=== PATIENT | female | born 1935 | race Caucasian/White ===

== ENCOUNTER → 2017-10-19 | Outpatient (CLI) | payer OTHER, MEDICAID ==
[~2017-10-19] MED LIST: AMLO10TA2 PO; APIX5TAB PO; CEPH-376 PO; CLON0.5T11 PO; DIGO125T PO; DILT120C9 PO; DILT180C53 PO; DILT240C55 PO; ESCI10TA PO; ESCI5TAB PO; FURO-93 PO; HYDR-3237 PO; IBUP-1222 PO; IPRA3AMP30 NPPB; LOSA1TAB25 PO; LOSA25TA2 PO; LOSA50TA2 PO; METO200T47 PO; METO25TA35 PO; POTA10TA5 PO; SULF15DR5 EACHEYE
== END | disposition home or self-care (01) ==
LOC: CFH 09:02
PROVIDERS: ATTEND Internal Medicine Critical Care Medicine
DX: J84.9 Interstitial pulmonary disease, unspecified (principal); R06.09 Other forms of dyspnea
CPT/HCPCS: 71250

== ENCOUNTER → 2018-01-03 | Outpatient (CLI) | payer OTHER, MEDICAID ==
[~2018-01-03] MED LIST changes: -AMLO10TA2 PO; +AMLO10TA6 PO
== END | disposition home or self-care (01) ==
LOC: CVU 13:48
PROVIDERS: ATTEND Internal Medicine Cardiovascular Disease
DX: I08.0 Rheumatic disorders of both mitral and aortic valves (principal); I10 Essential (primary) hypertension; Z87.891 Personal history of nicotine dependence
CPT/HCPCS: 93306

== ENCOUNTER 2018-09-28 15:14 | Inpatient (IN) | payer MEDICAID, MEDICARE, OTHER ==
[~2018-09-28] VITALS: Ht 165.1 cm; Wt 122.9 kg
[2018-10-03 07:34] VITALS: BP 119/79
== END 2018-10-03 10:50 | disposition home or self-care (01) | DRG 180 ==
LOC: ED 19:18 → EDIP 19:22 → 3NW 20:19 → 4WST 09-29 12:48 → DCLOUNGE 10-03 10:39
PROVIDERS: ADMIT Internal Medicine; ATTEND Internal Medicine
PROC: 0BBL3ZX Excision of Left Lung, Percutaneous Approach, Diagnostic (ICD-10-PCS; principal; 2018-10-02)
DX: C34.32 Malignant neoplasm of lower lobe, left bronchus or lung (principal); J18.9 Pneumonia, unspecified organism; J96.20 Acute and chronic respiratory failure, unspecified whether with hypoxia or hypercapnia; E43 Unspecified severe protein-calorie malnutrition; N17.0 Acute kidney failure with tubular necrosis; D68.69 Other thrombophilia; Z68.42 Body mass index [BMI] 45.0-49.9, adult; I50.32 Chronic diastolic (congestive) heart failure; J44.0 Chronic obstructive pulmonary disease with (acute) lower respiratory infection; E66.01 Morbid (severe) obesity due to excess calories; R91.8 Other nonspecific abnormal finding of lung field; F32.9 Major depressive disorder, single episode, unspecified; F41.9 Anxiety disorder, unspecified; I11.0 Hypertensive heart disease with heart failure; I48.2 Chronic atrial fibrillation; Z82.49 Family history of ischemic heart disease and other diseases of the circulatory system; Z79.01 Long term (current) use of anticoagulants; Z87.891 Personal history of nicotine dependence; Z90.710 Acquired absence of both cervix and uterus; Z99.81 Dependence on supplemental oxygen
CPT/HCPCS: 32405; 36415; 71045; 71260; 77012; 80053; 80061; 82378; 83036; 83605; 83735; 83880; 84145; 84439; 84443; 84484; 85025; 85610; 87040; 87070; 87205; 88305; 88333; 88341; 88342; 93005; 93306; 94640; 99156; 99157; 99291; G0378; J0696; J1335; J1644; J2250; J3010; J7060; J7613; J7620; Q9967; J2310

== ENCOUNTER → 2018-12-26 | Outpatient (CLI) | payer MEDICARE, MEDICAID ==
[~2018-12-26] MED LIST changes: -AMLO10TA6 PO; +AMLO10TA8 PO; +DILT120C48 PO; -DILT120C9 PO; +LEVA0.63 INH; +LEVO500T47 PO; +LIDOCAINE 1%, 10ML ONE; +SPIR25TA5 PO; +WARF-36 PO; +[UNRECOGNIZED DRUG - CODE] PO
== END | disposition home or self-care (01) ==
LOC: RAD 13:40
PROVIDERS: ATTEND Radiology Radiation Oncology
DX: J90 Pleural effusion, not elsewhere classified (principal); C34.32 Malignant neoplasm of lower lobe, left bronchus or lung
CPT/HCPCS: 32555

== ENCOUNTER → 2019-01-25 | Outpatient (CLI) | payer MEDICARE, MEDICAID ==
[~2019-01-25] MED LIST changes: -LIDOCAINE 1%, 10ML ONE
== END | disposition home or self-care (01) ==
LOC: EDSTATUS 01-22 19:00 → ROC 07:17
PROVIDERS: ATTEND Radiology Radiation Oncology
DX: C34.32 Malignant neoplasm of lower lobe, left bronchus or lung (principal)
CPT/HCPCS: 99213; G0463

== ENCOUNTER 2019-02-06 06:27 | Emergency (ER) | payer MEDICARE, MEDICAID ==
[~2019-02-06] VITALS: Ht 165.1 cm; Wt 108.1 kg
[2019-02-06] MEDS ORDERED: SODIUM CHLORIDE 0.9% 1,000ML IVBOLUS ONE (07:00)
[2019-02-06] MEDS ORDERED: SODIUM CHLORIDE FLUSH 10ML SYR IVF ONE (07:00)
--- NOTE | 2019-02-06 07:10 | NUR ---
REPORT RECEIVED FROM OSORIO RN. PT TAKEN TO IMAGING AT THIS TIME, DENIES NEEDS, NAD NOTED
[2019-02-06 07:24] LABS: ALBUMIN 2.9 g/dL (3.4-5.0); ANION GAP 7 mmol/L (5-15); CALCIUM 8.9 mg/dL (8.5-10.1); CHLORIDE 100 mmol/L (98-107)
[2019-02-06 07:25] LABS: BASOPHILS # (AUTO) 0.01 x10^3/uL (0-0.1); BASOPHILS % (AUTO) 0 % (0-1); EOSINOPHILS # (AUTO) 0.02 x10^3/uL (0-0.4); EOSINOPHILS % (AUTO) 0 % (1-7); LYMPHOCYTES # (AUTO) 0.96 x10^3/uL (1-3.4); LYMPHOCYTES % (AUTO) 16 % (22-44); MD NO; MEAN CORPUSCULAR HEMOGLOBIN 32.8 pg (27.0-34.8); MEAN CORPUSCULAR HGB CONC 33.3 g/dL (32.4-35.8); MEAN CORPUSCULAR VOLUME 98.3 fL (80-100); MEAN PLATELET VOLUME 7.2 fL (7.4-10.4); MONOCYTES # (AUTO) 0.49 x10^3/uL (0.2-0.8); MONOCYTES % (AUTO) 8 % (2-9); NEUTROPHILS # (AUTO) 4.63 x10^3/uL (1.8-6.8); NEUTROPHILS % (AUTO) 76 % (42-75); PLATELET COUNT 248 x10^3/uL (130-400); RED BLOOD COUNT 3.91 x10^6/uL (3.82-5.3); RED CELL DISTRIBUTION WIDTH 17.2 % (9.6-15.2)
[2019-02-06 07:26] LABS: ALANINE AMINOTRANSFERASE 47 U/L (12-78); ALKALINE PHOSPHATASE 181 U/L (45-117); BILIRUBIN,TOTAL 0.8 mg/dL (0.2-1.0); CREATININE 1.41 mg/dL (0.55-1.02); TOTAL PROTEIN 8.3 g/dL (6.4-8.2)
--- NOTE | 2019-02-06 08:07 | NUR ---
PT ASSISTED TO BR, WHEELCHAIR NEEDED FOR ASSIT, PT REMAINS ON SUPP O2 DURING TRANSFER, UA/ STOOL SAMPLE COLLECTED AND SENT TO LAB, PT BACK TO [facility] AT THIS TIME, VSS
[2019-02-06] MEDS ORDERED: LOPERAMIDE 2 MG CAPSULE ONE (08:26)
[2019-02-06] MEDS ORDERED: LOPERAMIDE 2 MG CAPSULE PO ONE (08:30)
[2019-02-06 08:35] LABS: MICROSCOPIC INDICATED
[2019-02-06 09:10] LABS: CULTURE INDICATED? YES
[2019-02-06 09:51] LABS: CLOSTRIDIUM DIFFICILE ANTIGEN NEGATIVE; CLOSTRIDIUM DIFFICILE TOXIN NEGATIVE (Negative)
--- NOTE | 2019-02-06 09:55 | NUR ---
REPORT TO MURALI PADILLA
--- NOTE | 2019-02-06 09:57 | NUR ---
PT RESTING IN ROOM WITH EYES CLOSED. EASILY ARROUSABLE TO VOICE. VSS. NO NEEDS EXPRESSED. CALL LIGHT WITHIN REACH. ALL RESULTS BACK AT THIS TIME. CHART UP FOR RECHECK.
[2019-02-06 10:48] VITALS: BP 109/59
== END 2019-02-06 11:33 | disposition home or self-care (01) ==
LOC: ED 09:05
DX: R19.7 Diarrhea, unspecified (principal); I11.0 Hypertensive heart disease with heart failure; I50.9 Heart failure, unspecified; J44.9 Chronic obstructive pulmonary disease, unspecified; Z87.891 Personal history of nicotine dependence
CPT/HCPCS: 36415; 74022; 80053; 81001; 85025; 87086; 87324; 89055; 96360; 99284; J7030

== ENCOUNTER 2019-02-12 18:57 | Emergency (ER) | payer MEDICARE, MEDICAID ==
[~2019-02-12] VITALS: Ht 165.1 cm; Wt 109.3 kg
--- NOTE | 2019-02-12 19:28 | NUR ---
PT HERE SENT FROM URGENT CARE FOR POSSIBLE WOUND INFECTION ON RIGHT POSTERIOR CALF. PT STATES STARTED A SCRATCH 3-4 WEEKS AGO AND HAS GOTTEN PROGESSIVELY WORSE. PT AAO X 4, NAD, ON BASELINE O2 AT HOME, DRESSED IN GOWN AND ON MONITOR. CALL LIGHT WITHIN REACH AND FAMILY AT BEDSIDE.
--- NOTE | 2019-02-12 20:25 | NUR ---
RADIOLOGY AT BEDSIDE AND COMPLETED. US AT BEDSIDE.
[2019-02-12] MEDS ORDERED: WARF2TAB PO (20:38)
[2019-02-12] MEDS ORDERED: WARF1TAB74 PO (20:38)
--- NOTE | 2019-02-12 21:02 | NUR ---
REPORT GIVEN TO RANDY LÓPEZ. CARE TRANSFERRED.
[2019-02-12 22:24] VITALS: BP 138/64
== END 2019-02-12 22:40 | disposition home or self-care (01) ==
LOC: ED 20:31
DX: L03.115 Cellulitis of right lower limb (principal); I50.9 Heart failure, unspecified; I11.0 Hypertensive heart disease with heart failure; I48.91 Unspecified atrial fibrillation; Z87.891 Personal history of nicotine dependence
CPT/HCPCS: 99284

== ENCOUNTER → 2019-02-22 | Outpatient (CLI) | payer MEDICARE, MEDICAID ==
[~2019-02-22] MED LIST changes: +OMNIPAQUE 350 MG/ML, 100ML BOTTLE ONE; +WARF1TAB74 PO; +WARF2TAB PO
== END | disposition home or self-care (01) ==
LOC: CFH 15:19
PROVIDERS: ATTEND Radiology Radiation Oncology
DX: C34.32 Malignant neoplasm of lower lobe, left bronchus or lung (principal); I70.0 Atherosclerosis of aorta; I51.7 Cardiomegaly; J90 Pleural effusion, not elsewhere classified; J43.2 Centrilobular emphysema; J81.1 Chronic pulmonary edema; M85.88 Other specified disorders of bone density and structure, other site; M47.892 Other spondylosis, cervical region; N28.1 Cyst of kidney, acquired; N28.89 Other specified disorders of kidney and ureter; K59.09 Other constipation
CPT/HCPCS: 71260; 74177; Q9967

== ENCOUNTER 2019-02-26 10:32 | Outpatient (CLI) | payer MEDICARE, MEDICAID ==
[~2019-02-26 10:32] MED LIST changes: +CLON-364 PO; -CLON0.5T11 PO; -DIGO125T PO; +DIGO125T85 PO; -OMNIPAQUE 350 MG/ML, 100ML BOTTLE ONE
[2019-05-06] MEDS ORDERED: ERGO2000 PO (01:36)
[2019-05-06] MEDS ORDERED: CYAN250013 PO (01:36)
[2019-05-09] MEDS ORDERED: CEFD300C37 PO ×2 (09:30)
== END 2019-02-26 23:59 | disposition home or self-care (01) ==
LOC: ROC 10:32
PROVIDERS: ATTEND Radiology Radiation Oncology
DX: C34.32 Malignant neoplasm of lower lobe, left bronchus or lung (principal)
CPT/HCPCS: 99213; G0463

== ENCOUNTER 2019-03-06 10:20 | Outpatient (CLI) | payer MEDICARE, MEDICAID | END 2019-03-06 23:59 | disposition home or self-care (01) | LOC: WOUND 10:20 | PROVIDERS: ATTEND Internal Medicine Infectious Disease | DX: L97.812 Non-pressure chronic ulcer of other part of right lower leg with fat layer exposed (principal); C34.12 Malignant neoplasm of upper lobe, left bronchus or lung; I11.0 Hypertensive heart disease with heart failure; I50.9 Heart failure, unspecified; I48.91 Unspecified atrial fibrillation; Z90.710 Acquired absence of both cervix and uterus; Z87.891 Personal history of nicotine dependence | CPT/HCPCS: 97602; G0463 ==

== ENCOUNTER → 2019-03-13 | Outpatient (CLI) | payer MEDICARE, MEDICAID ==
[~2019-03-13] MED LIST changes: -CLON-364 PO; +CLON0.5T11 PO; +DIGO125T PO; -DIGO125T85 PO
== END | disposition home or self-care (01) ==
LOC: WOUND 09:31
PROVIDERS: ATTEND Nurse Practitioner Family
DX: L97.812 Non-pressure chronic ulcer of other part of right lower leg with fat layer exposed (principal); C34.12 Malignant neoplasm of upper lobe, left bronchus or lung; I50.9 Heart failure, unspecified; I48.91 Unspecified atrial fibrillation; Z87.891 Personal history of nicotine dependence
CPT/HCPCS: 97597

== ENCOUNTER 2019-03-20 10:59 | Outpatient (CLI) | payer MEDICARE, MEDICAID ==
[~2019-03-20 10:59] MED LIST changes: +CLON-364 PO; -CLON0.5T11 PO; -DIGO125T PO; +DIGO125T85 PO
== END 2019-03-20 23:59 | disposition home or self-care (01) ==
LOC: WOUND 10:59
PROVIDERS: ATTEND Nurse Practitioner Family
DX: L97.812 Non-pressure chronic ulcer of other part of right lower leg with fat layer exposed (principal); C34.12 Malignant neoplasm of upper lobe, left bronchus or lung; I11.0 Hypertensive heart disease with heart failure; I50.9 Heart failure, unspecified; I48.91 Unspecified atrial fibrillation; J43.2 Centrilobular emphysema; Z87.891 Personal history of nicotine dependence; Z90.710 Acquired absence of both cervix and uterus
CPT/HCPCS: 11042; 97607

== ENCOUNTER 2019-03-23 12:45 | Outpatient (CLI) | payer MEDICARE, MEDICAID | END 2019-03-23 23:59 | disposition home or self-care (01) | LOC: WOUND 12:45 | PROVIDERS: ATTEND Family Medicine | DX: L97.811 Non-pressure chronic ulcer of other part of right lower leg limited to breakdown of skin (principal); I11.0 Hypertensive heart disease with heart failure; I50.9 Heart failure, unspecified; I70.0 Atherosclerosis of aorta; I48.91 Unspecified atrial fibrillation; M85.88 Other specified disorders of bone density and structure, other site; M47.892 Other spondylosis, cervical region; J81.1 Chronic pulmonary edema; J44.9 Chronic obstructive pulmonary disease, unspecified; C34.32 Malignant neoplasm of lower lobe, left bronchus or lung; C34.12 Malignant neoplasm of upper lobe, left bronchus or lung; Z90.710 Acquired absence of both cervix and uterus; Z88.0 Allergy status to penicillin; Z87.891 Personal history of nicotine dependence | CPT/HCPCS: G0463 ==

== ENCOUNTER 2019-03-27 10:18 | Outpatient (CLI) | payer MEDICARE, MEDICAID | END 2019-03-27 23:59 | disposition home or self-care (01) | LOC: WOUND 10:18 | PROVIDERS: ATTEND Nurse Practitioner Family | DX: L97.811 Non-pressure chronic ulcer of other part of right lower leg limited to breakdown of skin (principal); I11.0 Hypertensive heart disease with heart failure; I50.9 Heart failure, unspecified; I70.0 Atherosclerosis of aorta; I48.91 Unspecified atrial fibrillation; J81.1 Chronic pulmonary edema; J44.9 Chronic obstructive pulmonary disease, unspecified; M85.88 Other specified disorders of bone density and structure, other site; M47.892 Other spondylosis, cervical region; N28.1 Cyst of kidney, acquired; N28.89 Other specified disorders of kidney and ureter; C34.12 Malignant neoplasm of upper lobe, left bronchus or lung; C34.32 Malignant neoplasm of lower lobe, left bronchus or lung; Z87.891 Personal history of nicotine dependence; Z88.0 Allergy status to penicillin; Z90.710 Acquired absence of both cervix and uterus | CPT/HCPCS: 97597 ==

== ENCOUNTER 2019-04-03 10:34 | Outpatient (CLI) | payer MEDICARE, MEDICAID | END 2019-04-03 23:59 | disposition home or self-care (01) | LOC: WOUND 10:34 | PROVIDERS: ATTEND Nurse Practitioner Family | DX: L97.811 Non-pressure chronic ulcer of other part of right lower leg limited to breakdown of skin (principal); L84 Corns and callosities; I11.0 Hypertensive heart disease with heart failure; I50.9 Heart failure, unspecified; I70.0 Atherosclerosis of aorta; I48.91 Unspecified atrial fibrillation; N28.1 Cyst of kidney, acquired; M47.892 Other spondylosis, cervical region; M85.88 Other specified disorders of bone density and structure, other site; J44.9 Chronic obstructive pulmonary disease, unspecified; J81.1 Chronic pulmonary edema; C34.12 Malignant neoplasm of upper lobe, left bronchus or lung; F41.9 Anxiety disorder, unspecified; Z88.0 Allergy status to penicillin; Z87.891 Personal history of nicotine dependence; Z90.710 Acquired absence of both cervix and uterus; Z90.49 Acquired absence of other specified parts of digestive tract | CPT/HCPCS: 97597 ==

== ENCOUNTER → 2019-04-10 | Outpatient (CLI) | payer MEDICARE, MEDICAID | END | disposition home or self-care (01) | LOC: WOUND 09:55 | PROVIDERS: ATTEND Internal Medicine Infectious Disease | DX: L97.812 Non-pressure chronic ulcer of other part of right lower leg with fat layer exposed (principal); C34.12 Malignant neoplasm of upper lobe, left bronchus or lung; I50.9 Heart failure, unspecified; I48.91 Unspecified atrial fibrillation; Z87.891 Personal history of nicotine dependence | CPT/HCPCS: 97597 ==

== ENCOUNTER 2019-04-17 10:13 | Outpatient (CLI) | payer MEDICARE, MEDICAID | END 2019-04-17 23:59 | disposition home or self-care (01) | LOC: WOUND 10:13 | PROVIDERS: ATTEND Nurse Practitioner Family | DX: L97.811 Non-pressure chronic ulcer of other part of right lower leg limited to breakdown of skin (principal); C34.12 Malignant neoplasm of upper lobe, left bronchus or lung; I50.9 Heart failure, unspecified; I48.91 Unspecified atrial fibrillation; Z87.891 Personal history of nicotine dependence; F41.9 Anxiety disorder, unspecified; Z88.0 Allergy status to penicillin; J44.9 Chronic obstructive pulmonary disease, unspecified; Z90.710 Acquired absence of both cervix and uterus; Z90.49 Acquired absence of other specified parts of digestive tract; I11.0 Hypertensive heart disease with heart failure; M85.80 Other specified disorders of bone density and structure, unspecified site; M43.02 Spondylolysis, cervical region | CPT/HCPCS: 97597 ==

== ENCOUNTER → 2019-04-24 | Outpatient (CLI) | payer MEDICARE, MEDICAID | END | disposition home or self-care (01) | LOC: WOUND 09:51 | PROVIDERS: ATTEND Nurse Practitioner Family | DX: L97.812 Non-pressure chronic ulcer of other part of right lower leg with fat layer exposed (principal); C34.12 Malignant neoplasm of upper lobe, left bronchus or lung; I50.9 Heart failure, unspecified; I48.91 Unspecified atrial fibrillation; Z87.891 Personal history of nicotine dependence | CPT/HCPCS: 97597 ==

== ENCOUNTER → 2019-05-01 | Outpatient (CLI) | payer MEDICARE, MEDICAID | END | disposition home or self-care (01) | LOC: WOUND 09:56 | PROVIDERS: ATTEND Nurse Practitioner Family | DX: L97.811 Non-pressure chronic ulcer of other part of right lower leg limited to breakdown of skin (principal); L84 Corns and callosities; I11.0 Hypertensive heart disease with heart failure; I50.9 Heart failure, unspecified; I48.91 Unspecified atrial fibrillation; C34.12 Malignant neoplasm of upper lobe, left bronchus or lung; J44.9 Chronic obstructive pulmonary disease, unspecified; M85.88 Other specified disorders of bone density and structure, other site; N28.9 Disorder of kidney and ureter, unspecified; F41.9 Anxiety disorder, unspecified; Z88.0 Allergy status to penicillin; Z90.710 Acquired absence of both cervix and uterus; Z87.891 Personal history of nicotine dependence; Z85.118 Personal history of other malignant neoplasm of bronchus and lung; Z90.49 Acquired absence of other specified parts of digestive tract | CPT/HCPCS: 97597 ==

== ENCOUNTER → 2019-05-04 | Outpatient (CLI) | payer MEDICARE, MEDICAID ==
[~2019-05-04] MED LIST changes: +CYAN250013 PO; +ERGO2000 PO
== END | disposition home or self-care (01) ==
LOC: CVU 08:09
PROVIDERS: ATTEND Nurse Practitioner Family
DX: S81.801D Unspecified open wound, right lower leg, subsequent encounter (principal); I70.203 Unspecified atherosclerosis of native arteries of extremities, bilateral legs; I83.92 Asymptomatic varicose veins of left lower extremity; X58.XXXD Exposure to other specified factors, subsequent encounter
CPT/HCPCS: 93922; 93925; 93970

== ENCOUNTER → 2019-06-25 | Outpatient (CLI) | payer MEDICARE, MEDICAID ==
[~2019-06-25] MED LIST changes: +CEFD300C37 PO; +OMNIPAQUE 350 MG/ML, 100ML BOTTLE ONE
== END | disposition home or self-care (01) ==
LOC: CFH 12:25
PROVIDERS: ATTEND Radiology Radiation Oncology
DX: C34.32 Malignant neoplasm of lower lobe, left bronchus or lung (principal); R91.8 Other nonspecific abnormal finding of lung field; J90 Pleural effusion, not elsewhere classified; I25.10 Atherosclerotic heart disease of native coronary artery without angina pectoris; I70.0 Atherosclerosis of aorta; I51.7 Cardiomegaly
CPT/HCPCS: 71260; 74177; Q9967

== ENCOUNTER → 2019-06-27 | Outpatient (CLI) | payer MEDICARE, MEDICAID ==
[~2019-06-27] MED LIST changes: -OMNIPAQUE 350 MG/ML, 100ML BOTTLE ONE
== END | disposition home or self-care (01) ==
LOC: CFH 14:45
PROVIDERS: ATTEND Internal Medicine Cardiovascular Disease
DX: I08.3 Combined rheumatic disorders of mitral, aortic and tricuspid valves (principal); I10 Essential (primary) hypertension; I48.91 Unspecified atrial fibrillation; Z87.891 Personal history of nicotine dependence
CPT/HCPCS: 93306

== ENCOUNTER 2019-07-09 09:35 | Outpatient (CLI) | payer MEDICARE, MEDICAID | END 2019-07-09 23:59 | disposition home or self-care (01) | LOC: ROC 09:35 | PROVIDERS: ATTEND Radiology Radiation Oncology | DX: Z08 Encounter for follow-up examination after completed treatment for malignant neoplasm (principal); C34.32 Malignant neoplasm of lower lobe, left bronchus or lung | CPT/HCPCS: 99213; G0463 ==

== ENCOUNTER 2019-07-19 18:20 | Inpatient (IN) | payer MEDICARE, MEDICAID ==
[~2019-07-19] VITALS: Ht 165.1 cm; Wt 107.2 kg
--- NOTE | 2019-07-19 18:37 | NUR ---
PT WHEELED TO ROOM FROM TRIAGE AT THIS TIME.
--- NOTE | 2019-07-19 19:25 | NUR ---
LAB AT BEDSIDE FOR BLOOD DRAW
[2019-07-19 19:39] LABS: BASOPHILS % (AUTO) 0 % (0-1); EOSINOPHILS # (AUTO) 0.08 x10^3/uL (0-0.4); EOSINOPHILS % (AUTO) 1 % (1-7); LYMPHOCYTES # (AUTO) 0.59 x10^3/uL (1-3.4); LYMPHOCYTES % (AUTO) 7 % (22-44); MD NO; MEAN CORPUSCULAR HEMOGLOBIN 32.5 pg (27.0-34.8); MEAN CORPUSCULAR VOLUME 98.8 fL (80-100); MEAN PLATELET VOLUME 6.9 fL (7.4-10.4); MONOCYTES # (AUTO) 0.57 x10^3/uL (0.2-0.8); MONOCYTES % (AUTO) 7 % (2-9); NEUTROPHILS # (AUTO) 6.67 x10^3/uL (1.8-6.8); NEUTROPHILS % (AUTO) 84 % (42-75); PLATELET COUNT 276 x10^3/uL (130-400); RED CELL DISTRIBUTION WIDTH 15.1 % (9.6-15.2)
[2019-07-19 19:48] LABS: ALANINE AMINOTRANSFERASE 29 U/L (12-78); ALBUMIN 2.7 g/dL (3.4-5.0); ANION GAP 5 mmol/L (5-15); CALCIUM 8.8 mg/dL (8.5-10.1); CHLORIDE 101 mmol/L (98-107); CREATININE 1.26 mg/dL (0.55-1.02)
[2019-07-19 19:52] LABS: ALKALINE PHOSPHATASE 154 U/L (45-117); TOTAL PROTEIN 8.2 g/dL (6.4-8.2); TROPONIN I < 0.015 ng/mL (0.000-0.045)
[2019-07-19 19:55] LABS: BILIRUBIN,TOTAL 0.3 mg/dL (0.2-1.0); INTERNATIONAL NORMALIZED RATIO 1.55 (0.93-1.1); PROTHROMBIN TIME 16.5 Seconds (9.6-11.5)
--- NOTE | 2019-07-19 20:32 | NUR ---
ALL RESULTS BACK AT THIS TIME CHART UP FOR RECHECK
[2019-07-19] MEDS ORDERED: CEFTRIAXONE PMX 1GM/50ML 50 ML ONE (21:17)
--- NOTE | 2019-07-19 21:21 | NUR ---
ABX STARTED, CULTURES DRAWN X2 PRIOR TO ABX
[2019-07-19] MEDS ORDERED: AZITHROMYCIN 500 MG in SODIUM CHLORIDE 0.9% 250 ML IV ONE (21:30)
[2019-07-19] MEDS ORDERED: CEFTRIAXONE PMX 1GM/50ML 50 ML IVPB ONE (21:30)
--- NOTE | 2019-07-19 22:28 | NUR ---
TP RN: PER ADMITING MD AND PASCUAL AMOS COVID SWAB
[2019-07-19] MEDS ORDERED: LABETALOL 5MG/ML, 20ML IVPush PRN (22:30)
[2019-07-19] MEDS ORDERED: PHARMACY MAY ADJ FOR RENAL FX MC PRN (22:30)
[2019-07-19] MEDS ORDERED: hydrALAzine 20 MG/ML, 1ML IVPush PRN (22:30)
[2019-07-19] MEDS ORDERED: ONDANSETRON 2MG/ML, 2ML IVPush PRN (22:30)
[2019-07-19] MEDS ORDERED: ONDANSETRON ODT 4 MG PO PRN (22:30)
[2019-07-19] MEDS ORDERED: VANCOMYCIN PER PHARMACY MC PRN (22:30)
[2019-07-19] MEDS ORDERED: BISACODYL 10 MG SUPP PR PRN (22:30)
--- NOTE | 2019-07-19 22:47 | NUR ---
REPORT TO JOY PADILLA PT READY FOR TRANSPORT TO ROOM AT THIS TIME
[2019-07-19] MEDS ORDERED: OMNIPAQUE 350 MG/ML, 75ML BOTTLE ONE (23:05)
[2019-07-19] MEDS ORDERED: PHARMACOKINETIC MONITORING MC PRN (23:45)
[2019-07-20] MEDS: ACETAMINOPHEN 325 MG TABLET PO PRN ×5 (00:20→20:35)
[2019-07-20] MEDS: CEFEPIME 2 GM in DEXTROSE 5% 100 ML IV SCH ×2 (00:21→12:16)
[2019-07-20] MEDS ORDERED: VANCOMYCIN 2,100 MG in SODIUM CHLORIDE 0.9% 500 ML IV ONE (00:30)
[2019-07-20] MEDS ORDERED: ALBUTEROL SULFATE 2.5 MG/3 ML NPPB PRN (01:00)
[2019-07-20 01:44] VITALS: BP 138/70
[2019-07-20 05:35] LABS: BASOPHILS % (AUTO) 0 % (0-1); EOSINOPHILS # (AUTO) 0.08 x10^3/uL (0-0.4); EOSINOPHILS % (AUTO) 1 % (1-7); LYMPHOCYTES % (AUTO) 8 % (22-44); MD NO; MEAN CORPUSCULAR HEMOGLOBIN 33.4 pg (27.0-34.8); MEAN CORPUSCULAR HGB CONC 33.6 g/dL (32.4-35.8); MEAN CORPUSCULAR VOLUME 99.4 fL (80-100); MONOCYTES # (AUTO) 0.48 x10^3/uL (0.2-0.8); MONOCYTES % (AUTO) 6 % (2-9); NEUTROPHILS # (AUTO) 6.69 x10^3/uL (1.8-6.8); NEUTROPHILS % (AUTO) 85 % (42-75); PLATELET COUNT 266 x10^3/uL (130-400); RED BLOOD COUNT 3.48 x10^6/uL (3.82-5.3); RED CELL DISTRIBUTION WIDTH 14.9 % (9.6-15.2)
[2019-07-20 05:36] LABS: ANION GAP 4 mmol/L (5-15); CALCIUM 8.8 mg/dL (8.5-10.1); CHLORIDE 102 mmol/L (98-107); CREATININE 1.14 mg/dL (0.55-1.02)
[2019-07-20 06:22] VITALS: BP 143/81
[2019-07-20] MEDS: ALBUTEROL SULFATE 2.5 MG/3 ML NPPB SCH ×5 (06:40→23:50)
[2019-07-20] MEDS: SPIRONOLACTONE 25 MG TABLET PO SCH (07:22)
[2019-07-20] MEDS: CHOLECALCIFEROL 1,000 UNIT TABLET PO SCH (07:22)
[2019-07-20] MEDS: DILTIAZEM 240 MG CAP.ER.24H PO SCH (07:22)
[2019-07-20] MEDS: DILTIAZEM CD 180 MG CAP.ER.24H PO SCH (07:22)
[2019-07-20] MEDS: SENNA/DOCUSATE TABLET PO SCH (07:23)
[2019-07-20] MEDS: POLYETHYLENE GLYCOL 17 GM PACKET PO SCH (07:23)
[2019-07-20] MEDS: FUROSEMIDE 40 MG TABLET PO SCH (07:23)
[2019-07-20] MEDS: CYANOCOBALAMIN 1,000 MCG TABLET PO SCH (07:23)
[2019-07-20 08:47] LABS: INTERNATIONAL NORMALIZED RATIO 1.5 (0.93-1.1)
[2019-07-20 12:16] VITALS: BP 120/80
[2019-07-20] MEDS ORDERED: LIDOCAINE 1%, 10ML ONE ×2 (14:57)
[2019-07-20] MEDS ORDERED: WARFARIN 2 MG TABLET PO-COUM ONE ×3 (16:58→18:00)
[2019-07-20 19:01] VITALS: BP 149/75
[2019-07-21] MEDS: CEFEPIME 2 GM in DEXTROSE 5% 100 ML IV SCH ×2 (00:04→11:09)
[2019-07-21 00:10] VITALS: BP 120/74
[2019-07-21] MEDS: ACETAMINOPHEN 325 MG TABLET PO PRN ×4 (01:09→21:38)
[2019-07-21] MEDS: ALBUTEROL SULFATE 2.5 MG/3 ML NPPB SCH ×5 (06:00→22:50)
[2019-07-21 06:11] LABS: BASOPHILS # (AUTO) 0.01 x10^3/uL (0-0.1); BASOPHILS % (AUTO) 0 % (0-1); EOSINOPHILS # (AUTO) 0.09 x10^3/uL (0-0.4); EOSINOPHILS % (AUTO) 1 % (1-7); LYMPHOCYTES # (AUTO) 0.51 x10^3/uL (1-3.4); LYMPHOCYTES % (AUTO) 7 % (22-44); MD NO; MEAN CORPUSCULAR HEMOGLOBIN 32.1 pg (27.0-34.8); MEAN CORPUSCULAR HGB CONC 32.6 g/dL (32.4-35.8); MEAN CORPUSCULAR VOLUME 98.4 fL (80-100); MEAN PLATELET VOLUME 6.9 fL (7.4-10.4); MONOCYTES # (AUTO) 0.55 x10^3/uL (0.2-0.8); MONOCYTES % (AUTO) 8 % (2-9); NEUTROPHILS # (AUTO) 5.99 x10^3/uL (1.8-6.8); NEUTROPHILS % (AUTO) 84 % (42-75); PLATELET COUNT 252 x10^3/uL (130-400); RED BLOOD COUNT 3.48 x10^6/uL (3.82-5.3); RED CELL DISTRIBUTION WIDTH 15.3 % (9.6-15.2)
[2019-07-21 06:19] LABS: INTERNATIONAL NORMALIZED RATIO 1.58 (0.93-1.1); PROTHROMBIN TIME 16.8 Seconds (9.6-11.5)
[2019-07-21 06:20] LABS: ANION GAP 6 mmol/L (5-15); CALCIUM 8.8 mg/dL (8.5-10.1); CHLORIDE 101 mmol/L (98-107); CREATININE 1.18 mg/dL (0.55-1.02)
[2019-07-21 06:21] LABS: VANCOMYCIN,RANDOM 13.3 mcg/mL
[2019-07-21 07:26] VITALS: BP 122/78
[2019-07-21] MEDS: DILTIAZEM 240 MG CAP.ER.24H PO SCH (08:19)
[2019-07-21] MEDS: SENNA/DOCUSATE TABLET PO SCH (08:19)
[2019-07-21] MEDS: FUROSEMIDE 40 MG TABLET PO SCH (08:19)
[2019-07-21] MEDS: SPIRONOLACTONE 25 MG TABLET PO SCH (08:19)
[2019-07-21] MEDS: DILTIAZEM CD 180 MG CAP.ER.24H PO SCH (08:19)
[2019-07-21] MEDS: CYANOCOBALAMIN 1,000 MCG TABLET PO SCH (08:19)
[2019-07-21] MEDS: POLYETHYLENE GLYCOL 17 GM PACKET PO SCH (08:20)
[2019-07-21] MEDS: CHOLECALCIFEROL 1,000 UNIT TABLET PO SCH (08:23)
[2019-07-21] MEDS ORDERED: VANCOMYCIN 1,600 MG in SODIUM CHLORIDE 0.9% 250 ML IV ONE (11:00)
[2019-07-21 12:52] VITALS: BP 126/72
[2019-07-21] MEDS ORDERED: WARFARIN 2 MG TABLET PO-COUM ONE (18:00)
[2019-07-21 19:48] VITALS: BP 153/79
[2019-07-22] MEDS: CEFEPIME 2 GM in DEXTROSE 5% 100 ML IV SCH ×3 (00:25→23:24)
[2019-07-22 00:58] VITALS: BP 126/56
[2019-07-22] MEDS: ACETAMINOPHEN 325 MG TABLET PO PRN ×3 (02:31→17:28)
[2019-07-22 06:07] LABS: BASOPHILS # (AUTO) 0.04 x10^3/uL (0-0.1); BASOPHILS % (AUTO) 1 % (0-1); EOSINOPHILS # (AUTO) 0.09 x10^3/uL (0-0.4); EOSINOPHILS % (AUTO) 1 % (1-7); LYMPHOCYTES # (AUTO) 0.41 x10^3/uL (1-3.4); LYMPHOCYTES % (AUTO) 6 % (22-44); MD NO; MEAN CORPUSCULAR HEMOGLOBIN 32.5 pg (27.0-34.8); MEAN CORPUSCULAR HGB CONC 32.7 g/dL (32.4-35.8); MEAN CORPUSCULAR VOLUME 99.3 fL (80-100); MEAN PLATELET VOLUME 7.2 fL (7.4-10.4); MONOCYTES % (AUTO) 8 % (2-9); NEUTROPHILS # (AUTO) 5.59 x10^3/uL (1.8-6.8); NEUTROPHILS % (AUTO) 84 % (42-75); PLATELET COUNT 255 x10^3/uL (130-400); RED BLOOD COUNT 3.55 x10^6/uL (3.82-5.3); RED CELL DISTRIBUTION WIDTH 15.5 % (9.6-15.2)
[2019-07-22 06:11] LABS: INTERNATIONAL NORMALIZED RATIO 1.61 (0.93-1.1); PROTHROMBIN TIME 17.2 Seconds (9.6-11.5)
[2019-07-22 06:15] LABS: ANION GAP 7 mmol/L (5-15); CALCIUM 8.9 mg/dL (8.5-10.1); CHLORIDE 103 mmol/L (98-107); CREATININE 1.04 mg/dL (0.55-1.02)
[2019-07-22] MEDS: ALBUTEROL SULFATE 2.5 MG/3 ML NPPB SCH ×5 (07:00→22:35)
[2019-07-22 07:15] VITALS: BP 143/83
[2019-07-22] MEDS: DILTIAZEM 240 MG CAP.ER.24H PO SCH (08:14)
[2019-07-22] MEDS: CHOLECALCIFEROL 1,000 UNIT TABLET PO SCH (08:14)
[2019-07-22] MEDS: CYANOCOBALAMIN 1,000 MCG TABLET PO SCH (08:14)
[2019-07-22] MEDS: POLYETHYLENE GLYCOL 17 GM PACKET PO SCH (08:15)
[2019-07-22] MEDS: SPIRONOLACTONE 25 MG TABLET PO SCH (08:15)
[2019-07-22] MEDS: FUROSEMIDE 40 MG TABLET PO SCH (08:15)
[2019-07-22] MEDS: DILTIAZEM CD 180 MG CAP.ER.24H PO SCH (08:15)
[2019-07-22] MEDS: SENNA/DOCUSATE TABLET PO SCH (08:15)
[2019-07-22 12:35] VITALS: BP 116/71
[2019-07-22] MEDS ORDERED: VANCOMYCIN 1,600 MG in SODIUM CHLORIDE 0.9% 250 ML IV ONE (14:00)
[2019-07-22] MEDS ORDERED: VANCOMYCIN 1,000 MG in SODIUM CHLORIDE 0.9% 250 ML IV ONE (14:00)
[2019-07-22] MEDS ORDERED: WARFARIN 5 MG TABLET PO-COUM ONE (18:00)
[2019-07-22 19:33] VITALS: BP 137/73
[2019-07-23 01:02] VITALS: BP 146/74
[2019-07-23] MEDS: ACETAMINOPHEN 325 MG TABLET PO PRN ×4 (02:22→22:09)
[2019-07-23 05:53] LABS: INTERNATIONAL NORMALIZED RATIO 2.13 (0.93-1.1); PROTHROMBIN TIME 22.7 Seconds (9.6-11.5)
[2019-07-23 05:54] LABS: ANION GAP 6 mmol/L (5-15); CALCIUM 8.8 mg/dL (8.5-10.1); CHLORIDE 105 mmol/L (98-107)
[2019-07-23 05:55] LABS: CREATININE 0.89 mg/dL (0.55-1.02)
[2019-07-23 05:56] LABS: BASOPHILS # (AUTO) 0.01 x10^3/uL (0-0.1); BASOPHILS % (AUTO) 0 % (0-1); EOSINOPHILS # (AUTO) 0.09 x10^3/uL (0-0.4); EOSINOPHILS % (AUTO) 1 % (1-7); LYMPHOCYTES # (AUTO) 0.47 x10^3/uL (1-3.4); LYMPHOCYTES % (AUTO) 8 % (22-44); MD NO; MEAN CORPUSCULAR HEMOGLOBIN 32.7 pg (27.0-34.8); MEAN PLATELET VOLUME 6.8 fL (7.4-10.4); MONOCYTES % (AUTO) 8 % (2-9); NEUTROPHILS # (AUTO) 5.09 x10^3/uL (1.8-6.8); NEUTROPHILS % (AUTO) 83 % (42-75); PLATELET COUNT 231 x10^3/uL (130-400); RED BLOOD COUNT 3.33 x10^6/uL (3.82-5.3)
[2019-07-23] MEDS: ALBUTEROL SULFATE 2.5 MG/3 ML NPPB SCH ×5 (06:00→23:25)
[2019-07-23 07:11] VITALS: BP 138/76
[2019-07-23] MEDS: POLYETHYLENE GLYCOL 17 GM PACKET PO SCH (09:00)
[2019-07-23] MEDS: SENNA/DOCUSATE TABLET PO SCH (09:00)
[2019-07-23] MEDS: CYANOCOBALAMIN 1,000 MCG TABLET PO SCH (10:07)
[2019-07-23] MEDS: CHOLECALCIFEROL 1,000 UNIT TABLET PO SCH (10:07)
[2019-07-23] MEDS: DILTIAZEM 240 MG CAP.ER.24H PO SCH (10:07)
[2019-07-23] MEDS: DILTIAZEM CD 180 MG CAP.ER.24H PO SCH (10:07)
[2019-07-23] MEDS: SPIRONOLACTONE 25 MG TABLET PO SCH (10:08)
[2019-07-23] MEDS: FUROSEMIDE 40 MG TABLET PO SCH (10:08)
[2019-07-23] MEDS: CEFEPIME 2 GM in DEXTROSE 5% 100 ML IV SCH ×2 (12:44→23:37)
[2019-07-23 12:57] VITALS: BP 145/83
[2019-07-23] MEDS ORDERED: WARFARIN 3 MG TABLET PO-COUM ONE (18:00)
[2019-07-23 18:52] VITALS: BP 133/71
[2019-07-24 01:44] VITALS: BP 143/68
[2019-07-24] MEDS: ALBUTEROL SULFATE 2.5 MG/3 ML NPPB SCH ×7 (03:25→23:45)
[2019-07-24] MEDS ORDERED: VANCOMYCIN 1,600 MG in SODIUM CHLORIDE 0.9% 250 ML IV SCH (05:00)
[2019-07-24 05:46] LABS: INTERNATIONAL NORMALIZED RATIO 2.87 (0.93-1.1); PROTHROMBIN TIME 30.7 Seconds (9.6-11.5)
[2019-07-24] MEDS: ACETAMINOPHEN 325 MG TABLET PO PRN ×2 (08:16→14:50)
[2019-07-24] MEDS: DILTIAZEM CD 180 MG CAP.ER.24H PO SCH (08:21)
[2019-07-24] MEDS: CHOLECALCIFEROL 1,000 UNIT TABLET PO SCH (08:21)
[2019-07-24] MEDS: SPIRONOLACTONE 25 MG TABLET PO SCH (08:22)
[2019-07-24] MEDS: DILTIAZEM 240 MG CAP.ER.24H PO SCH (08:22)
[2019-07-24] MEDS: CYANOCOBALAMIN 1,000 MCG TABLET PO SCH (08:22)
[2019-07-24] MEDS: SENNA/DOCUSATE TABLET PO SCH (08:23)
[2019-07-24] MEDS: POLYETHYLENE GLYCOL 17 GM PACKET PO SCH (08:23)
[2019-07-24] MEDS: FUROSEMIDE 40 MG TABLET PO SCH (08:23)
[2019-07-24 08:30] VITALS: BP 133/62
[2019-07-24] MEDS: CEFEPIME 2 GM in DEXTROSE 5% 100 ML IV SCH ×2 (11:43→23:55)
[2019-07-24 14:29] VITALS: BP 127/70
[2019-07-24] MEDS ORDERED: WARFARIN 2 MG TABLET PO-COUM ONE (18:00)
[2019-07-24 19:02] VITALS: BP 143/74
[2019-07-25 00:11] VITALS: BP 136/68
[2019-07-25] MEDS: ACETAMINOPHEN 325 MG TABLET PO PRN ×2 (02:40→12:23)
[2019-07-25] MEDS: ALBUTEROL SULFATE 2.5 MG/3 ML NPPB SCH ×6 (03:08→18:34)
[2019-07-25 05:19] LABS: BASOPHILS # (AUTO) 0.02 x10^3/uL (0-0.1); BASOPHILS % (AUTO) 0 % (0-1); EOSINOPHILS % (AUTO) 2 % (1-7); LYMPHOCYTES # (AUTO) 0.54 x10^3/uL (1-3.4); LYMPHOCYTES % (AUTO) 9 % (22-44); MD NO; MEAN CORPUSCULAR HEMOGLOBIN 32.3 pg (27.0-34.8); MEAN CORPUSCULAR HGB CONC 32.6 g/dL (32.4-35.8); MEAN PLATELET VOLUME 7.2 fL (7.4-10.4); MONOCYTES # (AUTO) 0.62 x10^3/uL (0.2-0.8); MONOCYTES % (AUTO) 10 % (2-9); NEUTROPHILS # (AUTO) 4.73 x10^3/uL (1.8-6.8); NEUTROPHILS % (AUTO) 79 % (42-75); PLATELET COUNT 237 x10^3/uL (130-400); RED BLOOD COUNT 3.33 x10^6/uL (3.82-5.3)
[2019-07-25 05:21] LABS: INTERNATIONAL NORMALIZED RATIO 3.16 (0.93-1.1); PROTHROMBIN TIME 33.9 Seconds (9.6-11.5)
[2019-07-25 05:24] LABS: ANION GAP 7 mmol/L (5-15); CALCIUM 8.7 mg/dL (8.5-10.1); CHLORIDE 103 mmol/L (98-107); CREATININE 1.15 mg/dL (0.55-1.02)
[2019-07-25 07:00] VITALS: BP 133/80
[2019-07-25] MEDS: CYANOCOBALAMIN 1,000 MCG TABLET PO SCH (08:27)
[2019-07-25] MEDS: FUROSEMIDE 40 MG TABLET PO SCH (08:28)
[2019-07-25] MEDS: CHOLECALCIFEROL 1,000 UNIT TABLET PO SCH (08:28)
[2019-07-25] MEDS: SENNA/DOCUSATE TABLET PO SCH (08:28)
[2019-07-25] MEDS: DILTIAZEM 240 MG CAP.ER.24H PO SCH (08:28)
[2019-07-25] MEDS: DILTIAZEM CD 180 MG CAP.ER.24H PO SCH (08:28)
[2019-07-25] MEDS: SPIRONOLACTONE 25 MG TABLET PO SCH (08:29)
[2019-07-25] MEDS: POLYETHYLENE GLYCOL 17 GM PACKET PO SCH (08:29)
[2019-07-25 14:00] VITALS: BP 123/69
[2019-07-25] MEDS ORDERED: WARFARIN 1 MG TABLET PO-COUM ONE (18:00)
== END 2019-07-25 20:15 | DRG 193 ==
LOC: ED 21:05 → EDIP 21:12 → ED 21:48 → 3WST 23:07
PROVIDERS: ADMIT Family Medicine; ATTEND Family Medicine
PROC: 0W9B3ZZ Drainage of Left Pleural Cavity, Percutaneous Approach (ICD-10-PCS; principal; 2019-07-20)
DX: J15.9 Unspecified bacterial pneumonia (principal); J96.21 Acute and chronic respiratory failure with hypoxia; C34.90 Malignant neoplasm of unspecified part of unspecified bronchus or lung; J90 Pleural effusion, not elsewhere classified; I50.32 Chronic diastolic (congestive) heart failure; I13.0 Hypertensive heart and chronic kidney disease with heart failure and stage 1 through stage 4 chronic kidney disease, or unspecified chronic kidney disease; D68.69 Other thrombophilia; N18.3 Chronic kidney disease, stage 3 (moderate); F32.9 Major depressive disorder, single episode, unspecified; I49.3 Ventricular premature depolarization; K59.00 Constipation, unspecified; I48.91 Unspecified atrial fibrillation; Z79.01 Long term (current) use of anticoagulants; Z90.49 Acquired absence of other specified parts of digestive tract; Z87.891 Personal history of nicotine dependence; Z88.0 Allergy status to penicillin; Z79.899 Other long term (current) drug therapy; Z20.828 Contact with and (suspected) exposure to other viral communicable diseases
CPT/HCPCS: 32555; 36415; 71045; 71260; 80048; 80053; 80202; 82042; 83605; 83615; 83880; 84145; 84157; 84443; 84484; 85025; 85610; 87040; 87070; 87075; 87205; 89051; 93005; 94640; 96365; 96375; 99285; G0378; J0456; J0696; J3370; J7613; Q9967; J7040; J7050; U0001-CS

== ENCOUNTER 2019-09-11 10:03 | Inpatient (IN) | payer MEDICARE, MEDICAID ==
[~2019-09-11] VITALS: Ht 165.1 cm; Wt 102.0 kg
[~2019-09-11 10:03] MED LIST changes: +BUPR150T6 PO
--- NOTE | 2019-09-11 10:52 | NUR ---
xray at bedside
[2019-09-11] MEDS ORDERED: SODIUM CHLORIDE FLUSH 10ML SYR IVF ONE (11:00)
--- NOTE | 2019-09-11 11:26 | NUR ---
UA SENT [facility] CALLED TO EXPEDITE SPECIMEN DRAW
[2019-09-11] MEDS ORDERED: CLON0.5T PO (11:35)
--- NOTE | 2019-09-11 11:35 | NUR ---
LAB AT BEDSIDE PATIENT REPORTS SHE HAS BEEN TKING 3MG OF WARFARIN EVERY DAY AT 4PM SINCE LAST TUESDAY HER INR WAS FOUND TO BE 1.8. USUALLYS SHE ALTERNATES BETWEEN 1 AND 2MG MG ON EVEN AND ODD DAYS ALSO 120MG OF DILTAZEM-ER Q-AFTERNOON REMOVED FROM [facility] PATIENT REPORTS SHE ONLY TAKES 420MG EVERY MORNING
[2019-09-11 11:40] LABS: MICROSCOPIC NOT IND
[2019-09-11 11:41] LABS: BASOPHILS % (AUTO) 0 % (0-1); EOSINOPHILS # (AUTO) 0.07 x10^3/uL (0-0.4); EOSINOPHILS % (AUTO) 1 % (1-7); LYMPHOCYTES # (AUTO) 0.54 x10^3/uL (1-3.4); LYMPHOCYTES % (AUTO) 6 % (22-44); MD NO; MEAN CORPUSCULAR VOLUME 97.1 fL (80-100); MEAN PLATELET VOLUME 6.9 fL (7.4-10.4); MONOCYTES # (AUTO) 0.49 x10^3/uL (0.2-0.8); MONOCYTES % (AUTO) 6 % (2-9); NEUTROPHILS # (AUTO) 7.89 x10^3/uL (1.8-6.8); NEUTROPHILS % (AUTO) 88 % (42-75); PLATELET COUNT 338 x10^3/uL (130-400); RED BLOOD COUNT 3.42 x10^6/uL (3.82-5.3); RED CELL DISTRIBUTION WIDTH 15.3 % (9.6-15.2)
[2019-09-11] MEDS ORDERED: DICL100G19 TP (11:41)
[2019-09-11] MEDS ORDERED: ACET650S21 PO (11:41)
[2019-09-11] MEDS ORDERED: ACET325T14 PO (11:41)
[2019-09-11 11:53] LABS: INTERNATIONAL NORMALIZED RATIO 2.38 (0.93-1.1)
[2019-09-11 12:25] LABS: PROTHROMBIN TIME 25.4 Seconds (9.6-11.5)
--- NOTE | 2019-09-11 12:49 | NUR ---
Provided with lunch Updated on estimated poc (to be admitted)
[2019-09-11 12:50] LABS: ALBUMIN 2.8 g/dL (3.4-5.0); ANION GAP 4 mmol/L (5-15); CALCIUM 9.1 mg/dL (8.5-10.1); CHLORIDE 102 mmol/L (98-107); CREATININE 1.12 mg/dL (0.55-1.02)
[2019-09-11 12:54] LABS: TROPONIN I < 0.015 ng/mL (0.000-0.045)
--- NOTE | 2019-09-11 13:46 | NUR ---
PROVIDER REMINDED TO PLACE ADMIT ORDER
[2019-09-11] MEDS ORDERED: GUAIFENESIN/DM 200-20MG, 10ML UDC PO PRN (14:00)
[2019-09-11] MEDS ORDERED: ONDANSETRON 2MG/ML, 2ML IVPush PRN (14:00)
[2019-09-11] MEDS ORDERED: MELATONIN 5 MG TABLET PO PRN (14:00)
[2019-09-11] MEDS ORDERED: ACETAMINOPHEN 650 MG/20.3 ML UDC PO PRN (14:00)
[2019-09-11] MEDS ORDERED: POLYETHYLENE GLYCOL 17 GM PACKET PO PRN (14:00)
[2019-09-11] MEDS ORDERED: hydrALAzine 20 MG/ML, 1ML IVPush PRN (14:00)
[2019-09-11] MEDS ORDERED: BISACODYL 10 MG SUPP PR PRN (14:00)
[2019-09-11] MEDS ORDERED: SODIUM CHLORIDE FLUSH 10ML SYR IVF PRN (14:00)
--- NOTE | 2019-09-11 14:28 | NUR ---
rt at bedside to evaluate
[2019-09-11] MEDS ORDERED: ALBUTEROL SULFATE 2.5 MG/3 ML ONE (14:32)
--- NOTE | 2019-09-11 15:08 | NUR ---
TASK RN: PT RESTING ON GURNEY. REED
--- NOTE | 2019-09-11 15:12 | NUR ---
TASK RN: REPORT GIVEN TO PRASANTH HAMILTON RN. ALL QUESTIONS ANSWERED. AWAITING PT TRANSPORT.
[2019-09-11 15:40] VITALS: BP 139/76
[2019-09-11] MEDS: ALBUTEROL HFA 90 MCG/SPRAY INH SCH ×2 (16:00→21:00)
[2019-09-11] MEDS ORDERED: ALBUTEROL SULFATE 2.5 MG/3 ML NPPB SCH (16:00)
[2019-09-11] MEDS: FUROSEMIDE 40 MG/4 ML IV SCH (17:00)
[2019-09-11] MEDS ORDERED: WARFARIN 3 MG TABLET PO-COUM ONE (18:00)
[2019-09-11 20:42] VITALS: BP 123/77
[2019-09-12 00:17] VITALS: BP 124/64
[2019-09-12 04:55] LABS: BASOPHILS # (AUTO) 0.02 x10^3/uL (0-0.1); BASOPHILS % (AUTO) 0 % (0-1); EOSINOPHILS % (AUTO) 1 % (1-7); LYMPHOCYTES # (AUTO) 0.62 x10^3/uL (1-3.4); LYMPHOCYTES % (AUTO) 7 % (22-44); MD NO; MEAN CORPUSCULAR HEMOGLOBIN 31.8 pg (27.0-34.8); MEAN CORPUSCULAR HGB CONC 32.2 g/dL (32.4-35.8); MEAN CORPUSCULAR VOLUME 98.7 fL (80-100); MEAN PLATELET VOLUME 7.1 fL (7.4-10.4); MONOCYTES # (AUTO) 0.69 x10^3/uL (0.2-0.8); MONOCYTES % (AUTO) 8 % (2-9); NEUTROPHILS # (AUTO) 7.68 x10^3/uL (1.8-6.8); NEUTROPHILS % (AUTO) 84 % (42-75); PLATELET COUNT 322 x10^3/uL (130-400); RED BLOOD COUNT 3.37 x10^6/uL (3.82-5.3)
[2019-09-12 05:08] LABS: ANION GAP 5 mmol/L (5-15); CALCIUM 9.1 mg/dL (8.5-10.1); CHLORIDE 101 mmol/L (98-107)
[2019-09-12 05:11] LABS: CREATININE 1.09 mg/dL (0.55-1.02)
[2019-09-12] MEDS: PANTOPRAZOLE 40MG TABLET PO SCH (05:25)
[2019-09-12 06:30] VITALS: BP 124/73
[2019-09-12] MEDS: FUROSEMIDE 40 MG/4 ML IV SCH ×2 (08:22→16:32)
[2019-09-12] MEDS: DILTIAZEM 300 MG CAP.ER.24H PO SCH (08:22)
[2019-09-12] MEDS: DILTIAZEM 120 MG CAP.ER.24H PO SCH (08:22)
[2019-09-12] MEDS: SPIRONOLACTONE 25 MG TABLET PO SCH (08:23)
[2019-09-12] MEDS: CHOLECALCIFEROL 1,000 UNIT TABLET PO SCH (08:23)
[2019-09-12] MEDS: CYANOCOBALAMIN 1,000 MCG TABLET PO SCH (08:23)
[2019-09-12] MEDS: ALBUTEROL HFA 90 MCG/SPRAY INH SCH ×3 (08:23→20:07)
[2019-09-12 12:15] VITALS: BP 124/74
[2019-09-12 12:49] LABS: INTERNATIONAL NORMALIZED RATIO 2.52 (0.93-1.1)
[2019-09-12] MEDS: ACETAMINOPHEN 325 MG TABLET PO PRN ×2 (17:17→23:01)
[2019-09-12] MEDS ORDERED: WARFARIN 3 MG TABLET PO-COUM ONE (18:00)
[2019-09-12 18:47] VITALS: BP 115/64
[2019-09-13 01:03] VITALS: BP 116/67
[2019-09-13] MEDS: ALBUTEROL HFA 90 MCG/SPRAY INH PRN ×3 (01:16→14:30)
[2019-09-13 04:54] LABS: BASOPHILS % (AUTO) 0 % (0-1); EOSINOPHILS # (AUTO) 0.11 x10^3/uL (0-0.4); EOSINOPHILS % (AUTO) 1 % (1-7); LYMPHOCYTES # (AUTO) 0.57 x10^3/uL (1-3.4); LYMPHOCYTES % (AUTO) 7 % (22-44); MD NO; MEAN CORPUSCULAR HEMOGLOBIN 32.2 pg (27.0-34.8); MEAN CORPUSCULAR HGB CONC 32.8 g/dL (32.4-35.8); MEAN CORPUSCULAR VOLUME 98.1 fL (80-100); MEAN PLATELET VOLUME 7.3 fL (7.4-10.4); MONOCYTES # (AUTO) 0.56 x10^3/uL (0.2-0.8); MONOCYTES % (AUTO) 7 % (2-9); NEUTROPHILS # (AUTO) 7.03 x10^3/uL (1.8-6.8); NEUTROPHILS % (AUTO) 85 % (42-75); PLATELET COUNT 319 x10^3/uL (130-400); RED BLOOD COUNT 3.46 x10^6/uL (3.82-5.3); RED CELL DISTRIBUTION WIDTH 15.5 % (9.6-15.2)
[2019-09-13 05:04] LABS: INTERNATIONAL NORMALIZED RATIO 2.67 (0.93-1.1); PROTHROMBIN TIME 28.6 Seconds (9.6-11.5)
[2019-09-13 05:08] LABS: ANION GAP 3 mmol/L (5-15); CALCIUM 8.8 mg/dL (8.5-10.1); CHLORIDE 98 mmol/L (98-107)
[2019-09-13 05:10] LABS: CREATININE 1.39 mg/dL (0.55-1.02)
[2019-09-13] MEDS: PANTOPRAZOLE 40MG TABLET PO SCH (05:48)
[2019-09-13 07:41] VITALS: BP 125/74
[2019-09-13] MEDS: FUROSEMIDE 40 MG/4 ML IV SCH ×2 (09:14→17:00)
[2019-09-13] MEDS: DILTIAZEM 120 MG CAP.ER.24H PO SCH (09:15)
[2019-09-13] MEDS: CYANOCOBALAMIN 1,000 MCG TABLET PO SCH (09:15)
[2019-09-13] MEDS: ALBUTEROL HFA 90 MCG/SPRAY INH SCH ×2 (09:15→17:14)
[2019-09-13] MEDS: SPIRONOLACTONE 25 MG TABLET PO SCH (09:15)
[2019-09-13] MEDS: CHOLECALCIFEROL 1,000 UNIT TABLET PO SCH (09:16)
[2019-09-13] MEDS: DILTIAZEM 300 MG CAP.ER.24H PO SCH (09:16)
[2019-09-13 12:52] VITALS: BP 112/53
[2019-09-13] MEDS ORDERED: WARFARIN 3 MG TABLET PO-COUM ONE (18:00)
== END 2019-09-13 18:45 | disposition home or self-care (01) | DRG 292 ==
LOC: ED 12:18 → EDIP 13:47 → 4EST 15:23
PROVIDERS: ADMIT Hospitalist; ATTEND Hospitalist
DX: I11.0 Hypertensive heart disease with heart failure (principal); D68.59 Other primary thrombophilia; J96.10 Chronic respiratory failure, unspecified whether with hypoxia or hypercapnia; C34.90 Malignant neoplasm of unspecified part of unspecified bronchus or lung; F32.9 Major depressive disorder, single episode, unspecified; I48.91 Unspecified atrial fibrillation; J44.9 Chronic obstructive pulmonary disease, unspecified; Z83.2 Family history of diseases of the blood and blood-forming organs and certain disorders involving the immune mechanism; Z85.118 Personal history of other malignant neoplasm of bronchus and lung; Z87.01 Personal history of pneumonia (recurrent); Z87.891 Personal history of nicotine dependence; Z92.3 Personal history of irradiation; Z88.0 Allergy status to penicillin; Z88.8 Allergy status to other drugs, medicaments and biological substances; Z90.49 Acquired absence of other specified parts of digestive tract; Z79.899 Other long term (current) drug therapy; I50.33 Acute on chronic diastolic (congestive) heart failure
CPT/HCPCS: 36415; 71045; 80048; 81003; 82040; 83880; 84484; 85025; 85610; 85730; 93005; 94640; G0378; J1940; J7613

== ENCOUNTER 2019-09-24 11:06 | Outpatient (CLI) | payer MEDICARE, MEDICAID ==
[~2019-09-24 11:06] MED LIST changes: +ACET325T14 PO; +ACET650S21 PO; +CLON0.5T PO; +DICL100G19 TP
[2019-09-24] MEDS ORDERED: OMNIPAQUE 350 MG/ML, 75ML BOTTLE ONE (11:54)
[2019-09-29] MEDS ORDERED: MULT-752 PO (16:23)
[2019-10-04] MEDS ORDERED: BUDE0.5A INH (10:07)
[2019-10-04] MEDS ORDERED: BUME1TAB21 PO (10:07)
[2019-10-04] MEDS ORDERED: HYDR25SU3 PR (10:07)
[2019-10-04] MEDS ORDERED: FLUT1BLS INH ×2 (10:07)
[2019-10-04] MEDS ORDERED: GUAI200T37 PO (10:07)
== END 2019-09-24 23:59 | disposition home or self-care (01) ==
LOC: CFH 11:06
PROVIDERS: ATTEND Radiology Radiation Oncology
DX: C34.32 Malignant neoplasm of lower lobe, left bronchus or lung (principal); I51.7 Cardiomegaly; J90 Pleural effusion, not elsewhere classified
CPT/HCPCS: 71260; Q9967

== ENCOUNTER 2019-10-28 12:44 | Emergency (ER) | payer MEDICARE, MEDICAID ==
[~2019-10-28] VITALS: Ht 165.1 cm; Wt 97.8 kg
[~2019-10-28 12:44] MED LIST changes: +BUDE0.5A INH; +BUME1TAB21 PO; +FLUT1BLS INH; +GUAI200T37 PO; +HYDR25SU3 PR; +MULT-752 PO
[2019-10-28] MEDS ORDERED: MORPHINE SULFATE 4 MG/ML, 1ML IVPush PRN (13:30)
[2019-10-28] MEDS ORDERED: HYDROcodone/APAP 5/325 TABLET PO ONE (13:30)
[2019-10-28 13:32] LABS: MEAN CORPUSCULAR HEMOGLOBIN 30.8 pg (27.0-34.8); MEAN CORPUSCULAR VOLUME 96.1 fL (80-100); MEAN PLATELET VOLUME 6.2 fL (7.4-10.4); PLATELET COUNT 430 x10^3/uL (130-400); RED BLOOD COUNT 3.54 x10^6/uL (3.82-5.3); RED CELL DISTRIBUTION WIDTH 15.1 % (9.6-15.2)
[2019-10-28] MEDS ORDERED: HYDROcodone/APAP 5/325 TABLET ONE (13:36)
--- NOTE | 2019-10-28 13:42 | NUR ---
Pt medicated per emar and piv place. Second warm blanket and pillow provided.
--- NOTE | 2019-10-28 13:43 | NUR ---
Pt arrives to ed with lower chest pain near ribs. Pt reports feels sharp and tight with no radiation. pt reports she is also SOB but pt was a smoker for 60 years. Pt reports she has lung cancer in her lower left lung, however radiation was stopped since the tumor has shrunk. Pt denies trauma. Pt has even unlabored respirations and is sob with ambulation or laying flat. Pt reports no productive cough or fever. Pt connected to continous hr, spo2, nipb, monitors. Awaiting further orders.
[2019-10-28 13:45] LABS: ALANINE AMINOTRANSFERASE 23 U/L (12-78); ALBUMIN 2.6 g/dL (3.4-5.0); ANION GAP 6 mmol/L (5-15); CALCIUM 9.5 mg/dL (8.5-10.1); CHLORIDE 100 mmol/L (98-107); CREATININE 1.14 mg/dL (0.55-1.02)
[2019-10-28 13:49] LABS: ALKALINE PHOSPHATASE 138 U/L (45-117); BILIRUBIN,TOTAL 0.4 mg/dL (0.2-1.0); TOTAL PROTEIN 8.4 g/dL (6.4-8.2); TROPONIN I < 0.015 ng/mL (0.000-0.045)
[2019-10-28 13:55] LABS: BASOPHILS # (AUTO) 0.01 x10^3/uL (0-0.1); BASOPHILS % (AUTO) 0 % (0-1); EOSINOPHILS # (AUTO) 0.01 x10^3/uL (0-0.4); EOSINOPHILS % (AUTO) 0 % (1-7); LYMPHOCYTES % (AUTO) 6 % (22-44); MD SCAN; MONOCYTES # (AUTO) 0.46 x10^3/uL (0.2-0.8); MONOCYTES % (AUTO) 4 % (2-9); NEUTROPHILS # (AUTO) 9.55 x10^3/uL (1.8-6.8); NEUTROPHILS % (AUTO) 90 % (42-75)
--- NOTE | 2019-10-28 13:56 | NUR ---
Pt ambulated to restroom with no distress. Pt verbalized to RN "i hope i make it, i took my water pill before i came in" I need your help. Pt when being assisted to wheelchair would not remove blanket off of her wanted the RN to do it. Pt helped into wheelchair then back. Pt very demanding to daughter and RN in not fast to assist. Pt informed that RN will assist as quickly as possible and prioritization will occur based on needs and severity of other patients but pt will be seen as soon as RN can and to please be understanding she is not the only patient in the ED at this time. Pt scowled at rn. Pts [id number] apologized upond mothers shortness and per daughters words "rudeness of mother" towards staff. family informed we are here to help and the patient is always the priority and we want this to be a good and positive experience and that we appreciate her choosing [facility] for her care.
[2019-10-28] MEDS ORDERED: OMNIPAQUE 350 MG/ML, 75ML BOTTLE ONE (15:12)
[2019-10-28 16:25] VITALS: BP 129/69
--- NOTE | 2019-10-28 16:33 | NUR ---
Patient/Caregiver given discharge instructions and they have confirmed that they understand the instructions. Patient ambulatory with steady gait. Pt assisted into clothes and placed in hospital wheelchair with hospital o2. Pt informed of dc isntructions and follow up care.
== END 2019-10-28 16:36 | disposition home or self-care (01) ==
LOC: ED 15:34
DX: R07.2 Precordial pain (principal); M94.0 Chondrocostal junction syndrome [Tietze]; I48.91 Unspecified atrial fibrillation; I11.0 Hypertensive heart disease with heart failure; I50.9 Heart failure, unspecified; R00.0 Tachycardia, unspecified; Z85.118 Personal history of other malignant neoplasm of bronchus and lung
CPT/HCPCS: 36415; 71045; 71275; 80053; 84484; 85025; 93005; 99285; Q9967

== ENCOUNTER 2019-11-27 16:07 | Inpatient (IN) | payer MEDICARE, MEDICAID ==
[~2019-11-27] VITALS: Ht 165.1 cm; Wt 92.9 kg
[~2019-11-27 16:07] MED LIST changes: +DILT120T4 PO; +TRAM50TA2 PO
--- NOTE | 2019-11-27 16:20 | NUR ---
BIB [facility], PT WITH C/O CP BEGINNING APPROX 1 HR AFTER TAKING TRAMADOL. PT ALSO WITH INCREASED SOB, ON 4LNC AT HOME, PT SATING 96% ON BASELINE 4L. PT TO CARD MONITOR, CONT PULSE OX, BP. AWAITING ERMD ORDERS
[2019-11-27] MEDS ORDERED: ALBUTEROL/IPRATROPIUM 2.5MG/0.5MG, 3 ML ONE (16:59)
[2019-11-27] MEDS ORDERED: ALBUTEROL/IPRATROPIUM 2.5MG/0.5MG, 3 ML NPPB SCH (17:00)
[2019-11-27] MEDS ORDERED: SODIUM CHLORIDE FLUSH 10ML SYR IVF ONE (17:00)
--- NOTE | 2019-11-27 17:12 | NUR ---
PT MEDICATED PER APR. LAB IN TO DRAW PT
[2019-11-27 17:43] LABS: ALANINE AMINOTRANSFERASE 15 U/L (12-78); ALBUMIN 2.3 g/dL (3.4-5.0); ANION GAP 6 mmol/L (5-15); CALCIUM 9.1 mg/dL (8.5-10.1); CHLORIDE 97 mmol/L (98-107); CREATININE 1.12 mg/dL (0.55-1.02)
[2019-11-27 17:44] LABS: BASOPHILS % (AUTO) 0 % (0-1); EOSINOPHILS % (AUTO) 0 % (1-7); LYMPHOCYTES % (AUTO) 4 % (22-44); MEAN CORPUSCULAR HEMOGLOBIN 29.6 pg (27.0-34.8); MEAN PLATELET VOLUME 6.7 fL (7.4-10.4); MONOCYTES % (AUTO) 6 % (2-9); NEUTROPHILS % (AUTO) 89 % (42-75); PLATELET COUNT 458 x10^3/uL (130-400); RED CELL DISTRIBUTION WIDTH 15.3 % (9.6-15.2)
[2019-11-27 17:47] LABS: ALKALINE PHOSPHATASE 136 U/L (45-117); BILIRUBIN,TOTAL 0.3 mg/dL (0.2-1.0); TOTAL PROTEIN 8.2 g/dL (6.4-8.2); TROPONIN I < 0.015 ng/mL (0.000-0.045)
[2019-11-27 17:53] LABS: D-DIMER 4.34 ug/mlFEU (0.00-0.52); INTERNATIONAL NORMALIZED RATIO 4.32 (0.93-1.1); PROTHROMBIN TIME 45.2 Seconds (9.6-11.5)
--- NOTE | 2019-11-27 18:23 | NUR ---
PT ASSISTED TO BSC, UA SAMPLE COLLECTED IN [facility] AND SENT TO THE LAB.
[2019-11-27 18:32] LABS: MD SCAN
[2019-11-27 18:53] LABS: MICROSCOPIC INDICATED
--- NOTE | 2019-11-27 18:53 | NUR ---
REPORT FROM IRIS PADILLA
[2019-11-27] MEDS ORDERED: OMNIPAQUE 350 MG/ML, 75ML BOTTLE ONE (19:38)
[2019-11-27] MEDS ORDERED: DILTIAZEM 5 MG/ML, 5ML IVPush PRN (22:00)
[2019-11-27] MEDS ORDERED: BISACODYL 10 MG SUPP PR PRN (22:00)
[2019-11-27] MEDS ORDERED: ENALAPRILAT 1.25 MG/ML, 2ML IVPush PRN (22:00)
[2019-11-27] MEDS ORDERED: GUAIFENESIN 200 MG TABLET PO PRN (22:00)
--- NOTE | 2019-11-27 22:14 | NUR ---
REPORT CALLED TO STEVEN PADILLA TO ASSUME CARE UPON TRANSFER TO [facility]
[2019-11-27 22:44] VITALS: BP 129/71
[2019-11-27] MEDS: FUROSEMIDE 40 MG TABLET PO SCH (23:41)
[2019-11-28] MEDS ORDERED: ALBUTEROL HFA 90 MCG/SPRAY INH PRN
[2019-11-28] MEDS: ACETAMINOPHEN 325 MG TABLET PO PRN ×3 (00:13→21:28)
[2019-11-28 05:10] VITALS: BP 133/75
[2019-11-28 05:53] LABS: INTERNATIONAL NORMALIZED RATIO 4.1 (0.93-1.1); PROTHROMBIN TIME 42.8 Seconds (9.6-11.5)
[2019-11-28 06:24] VITALS: BP 128/75
[2019-11-28] MEDS ORDERED: DILTIAZEM MC SCH (07:00)
[2019-11-28] MEDS: BUMETANIDE 1 MG TABLET PO SCH (08:41)
[2019-11-28] MEDS: SPIRONOLACTONE 25 MG TABLET PO SCH (08:42)
[2019-11-28] MEDS: FUROSEMIDE 40 MG TABLET PO SCH ×2 (08:42→19:52)
[2019-11-28] MEDS: ONDANSETRON 2MG/ML, 2ML IVPush PRN ×2 (08:49→19:52)
[2019-11-28] MEDS ORDERED: FLUTICASONE/VILANTEROL 200-25MCG/INH INH SCH (09:00)
[2019-11-28] MEDS ORDERED: BUDESONIDE 0.5 MG/2 ML INHA INH SCH (09:00)
[2019-11-28] MEDS: DILTIAZEM 240 MG CAP.ER.24H PO SCH (09:02)
[2019-11-28] MEDS: LIDODERM 5% PATCH TD PRN (09:44)
[2019-11-28 12:09] VITALS: BP 124/74
[2019-11-28] MEDS ORDERED: [UNRECOGNIZED DRUG - REMARK] MC ONE (18:00)
[2019-11-28 19:13] VITALS: BP 114/67
[2019-11-28] MEDS: ALBUTEROL-IPRATROPIUM MDI INH INH SCH (19:56)
[2019-11-28] MEDS: POLYETHYLENE GLYCOL 17 GM PACKET PO PRN (20:09)
[2019-11-28] MEDS: GABAPENTIN 100 MG CAPSULE PO PRN (23:08)
[2019-11-29 01:28] VITALS: BP 132/83
[2019-11-29 06:33] LABS: INTERNATIONAL NORMALIZED RATIO 4.16 (0.93-1.1); PROTHROMBIN TIME 43.5 Seconds (9.6-11.5)
[2019-11-29 07:57] VITALS: BP 129/76
[2019-11-29] MEDS: ALBUTEROL-IPRATROPIUM MDI INH INH SCH (09:00)
[2019-11-29] MEDS: SPIRONOLACTONE 25 MG TABLET PO SCH (09:10)
[2019-11-29] MEDS: DILTIAZEM 240 MG CAP.ER.24H PO SCH (09:10)
[2019-11-29] MEDS: FUROSEMIDE 40 MG TABLET PO SCH ×2 (09:10→20:39)
[2019-11-29] MEDS: ACETAMINOPHEN 325 MG TABLET PO PRN ×2 (09:10→13:35)
[2019-11-29] MEDS: BUMETANIDE 1 MG TABLET PO SCH (09:10)
[2019-11-29] MEDS ORDERED: ALBUTEROL HFA 90 MCG/SPRAY INH PRN ×2 (10:00→13:00)
[2019-11-29 12:30] VITALS: BP 114/70
[2019-11-29] MEDS ORDERED: ALBUTEROL-IPRATROPIUM MDI INH INH PRN ×2 (13:00)
[2019-11-29] MEDS: OXYcodone/APAP 7.5/325MG TABLET PO PRN ×2 (15:54→23:12)
[2019-11-29] MEDS ORDERED: HOLD WARFARIN MC PRN (16:00)
[2019-11-29 19:39] VITALS: BP 123/73
[2019-11-29] MEDS: POLYETHYLENE GLYCOL 17 GM PACKET PO PRN (20:39)
[2019-11-30 01:32] VITALS: BP 135/74
[2019-11-30 05:29] LABS: INTERNATIONAL NORMALIZED RATIO 3.82 (0.93-1.1); PROTHROMBIN TIME 39.9 Seconds (9.6-11.5)
[2019-11-30] MEDS: OXYcodone/APAP 7.5/325MG TABLET PO PRN (06:11)
[2019-11-30 06:48] VITALS: BP 117/74
[2019-11-30] MEDS ORDERED: HOLD COUMADIN MC PRN (09:00)
[2019-11-30] MEDS: SPIRONOLACTONE 25 MG TABLET PO SCH (09:19)
[2019-11-30] MEDS: FUROSEMIDE 40 MG TABLET PO SCH ×2 (09:19→20:03)
[2019-11-30] MEDS: BUMETANIDE 1 MG TABLET PO SCH (09:20)
[2019-11-30] MEDS: DILTIAZEM 240 MG CAP.ER.24H PO SCH (09:20)
[2019-11-30 13:20] VITALS: BP 115/75
[2019-11-30 15:47] VITALS: BP 125/44
[2019-11-30] MEDS: LIDODERM 5% PATCH TD PRN (16:09)
[2019-11-30] MEDS: OXYcodone/APAP 5/325MG TABLET PO PRN ×2 (16:13→22:19)
[2019-11-30 19:56] VITALS: BP 144/71
[2019-11-30] MEDS: ONDANSETRON 2MG/ML, 2ML IVPush PRN (22:18)
[2019-12-01 01:38] VITALS: BP 120/78
[2019-12-01] MEDS: OXYcodone/APAP 5/325MG TABLET PO PRN ×4 (02:24→19:58)
[2019-12-01 05:50] LABS: INTERNATIONAL NORMALIZED RATIO 2.96 (0.93-1.1); PROTHROMBIN TIME 30.8 Seconds (9.6-11.5)
[2019-12-01 06:51] VITALS: BP 131/71
[2019-12-01] MEDS: SPIRONOLACTONE 25 MG TABLET PO SCH (09:00)
[2019-12-01] MEDS: BUMETANIDE 1 MG TABLET PO SCH (09:11)
[2019-12-01] MEDS: FUROSEMIDE 40 MG TABLET PO SCH ×2 (09:12→20:43)
[2019-12-01] MEDS: DILTIAZEM 240 MG CAP.ER.24H PO SCH (09:13)
[2019-12-01] MEDS: ONDANSETRON 2MG/ML, 2ML IVPush PRN (10:13)
[2019-12-01 12:22] VITALS: BP 117/69
[2019-12-01] MEDS ORDERED: WARFARIN 1 MG TABLET PO-COUM ONE (18:00)
[2019-12-01 18:40] VITALS: BP 112/66
[2019-12-01] MEDS: LIDODERM 5% PATCH TD PRN (20:51)
[2019-12-02 00:39] VITALS: BP 95/61
[2019-12-02] MEDS: OXYcodone/APAP 5/325MG TABLET PO PRN ×5 (00:55→21:51)
[2019-12-02] MEDS: GABAPENTIN 100 MG CAPSULE PO PRN ×2 (03:34→21:50)
[2019-12-02 04:41] LABS: INTERNATIONAL NORMALIZED RATIO 2.96 (0.93-1.1); PROTHROMBIN TIME 30.8 Seconds (9.6-11.5)
[2019-12-02 07:43] VITALS: BP 123/81
[2019-12-02] MEDS: FENTANYL 25 MCG PATCH TD SCH (09:46)
[2019-12-02] MEDS: DILTIAZEM 240 MG CAP.ER.24H PO SCH (09:47)
[2019-12-02] MEDS: BUMETANIDE 1 MG TABLET PO SCH (09:48)
[2019-12-02] MEDS: FUROSEMIDE 40 MG TABLET PO SCH ×2 (09:49→21:51)
[2019-12-02] MEDS: SPIRONOLACTONE 25 MG TABLET PO SCH (09:49)
[2019-12-02] MEDS: POLYETHYLENE GLYCOL 17 GM PACKET PO PRN (13:21)
[2019-12-02 13:39] VITALS: BP 135/77
[2019-12-02] MEDS ORDERED: WARFARIN 1 MG TABLET PO-COUM ONE (18:00)
[2019-12-02] MEDS ORDERED: HEMORRHOIDAL OINT, 57 GM (PREP H) RC PRN (19:30)
[2019-12-02] MEDS ORDERED: HEMORRHOIDAL OINT, 28 GM (PREP H) RC PRN (19:30)
[2019-12-02 21:53] VITALS: BP 108/69
[2019-12-03 04:12] VITALS: BP 98/62
[2019-12-03] MEDS: BUMETANIDE 1 MG TABLET PO SCH (09:36)
[2019-12-03] MEDS: OXYcodone/APAP 5/325MG TABLET PO PRN ×3 (09:37→23:59)
[2019-12-03] MEDS: DILTIAZEM 240 MG CAP.ER.24H PO SCH (09:37)
[2019-12-03] MEDS: SPIRONOLACTONE 25 MG TABLET PO SCH (09:38)
[2019-12-03] MEDS: FUROSEMIDE 40 MG TABLET PO SCH ×2 (09:38→19:31)
[2019-12-03 09:43] VITALS: BP 150/82
[2019-12-03 11:38] LABS: INTERNATIONAL NORMALIZED RATIO 2.49 (0.93-1.1); PROTHROMBIN TIME 25.9 Seconds (9.6-11.5)
[2019-12-03 14:57] VITALS: BP 124/63
[2019-12-03] MEDS: POLYETHYLENE GLYCOL 17 GM PACKET PO PRN (17:49)
[2019-12-03] MEDS ORDERED: WARFARIN 1 MG TABLET PO-COUM ONE (18:00)
[2019-12-03 18:38] VITALS: BP 116/69
[2019-12-03] MEDS: ONDANSETRON 2MG/ML, 2ML IVPush PRN (19:31)
[2019-12-03] MEDS: GABAPENTIN 100 MG CAPSULE PO PRN (23:58)
[2019-12-04 00:01] VITALS: BP 124/76
[2019-12-04 05:23] LABS: INTERNATIONAL NORMALIZED RATIO 2.39 (0.93-1.1); PROTHROMBIN TIME 24.8 Seconds (9.6-11.5)
[2019-12-04] MEDS: OXYcodone/APAP 5/325MG TABLET PO PRN ×2 (05:23→09:50)
[2019-12-04] MEDS: ONDANSETRON 2MG/ML, 2ML IVPush PRN (05:25)
[2019-12-04 06:27] VITALS: BP 117/74
[2019-12-04] MEDS: SPIRONOLACTONE 25 MG TABLET PO SCH (09:00)
[2019-12-04] MEDS: BUMETANIDE 1 MG TABLET PO SCH (09:00)
[2019-12-04] MEDS: FUROSEMIDE 40 MG TABLET PO SCH ×2 (09:00→19:44)
[2019-12-04] MEDS: DILTIAZEM 240 MG CAP.ER.24H PO SCH (09:44)
[2019-12-04] MEDS ORDERED: BISACODYL 10 MG SUPP PR PRN (10:30)
[2019-12-04] MEDS ORDERED: PINK LADY ENEMA 490 ML BOTTLE PR ONE (12:00)
[2019-12-04 13:28] VITALS: BP 112/68
[2019-12-04] MEDS ORDERED: WARFARIN 2 MG TABLET PO-COUM ONE (16:43)
[2019-12-04] MEDS ORDERED: WARFARIN 1 MG TABLET PO-COUM ONE (16:45)
[2019-12-04] MEDS ORDERED: WARFARIN 3 MG TABLET PO-COUM ONE (18:00)
[2019-12-04 19:08] VITALS: BP 119/70
[2019-12-05 00:52] VITALS: BP 137/82
[2019-12-05] MEDS: OXYcodone/APAP 5/325MG TABLET PO PRN ×5 (01:22→21:39)
[2019-12-05] MEDS: ONDANSETRON 2MG/ML, 2ML IVPush PRN (01:22)
[2019-12-05 04:52] VITALS: BP 132/78
[2019-12-05] MEDS: GABAPENTIN 100 MG CAPSULE PO PRN (05:42)
[2019-12-05 06:46] VITALS: BP 122/76
[2019-12-05 07:13] LABS: INTERNATIONAL NORMALIZED RATIO 2.76 (0.93-1.1); PROTHROMBIN TIME 28.7 Seconds (9.6-11.5)
[2019-12-05] MEDS: SPIRONOLACTONE 25 MG TABLET PO SCH (08:45)
[2019-12-05] MEDS: FUROSEMIDE 40 MG TABLET PO SCH ×2 (08:45→21:49)
[2019-12-05] MEDS: BUMETANIDE 1 MG TABLET PO SCH (08:45)
[2019-12-05] MEDS: DILTIAZEM 240 MG CAP.ER.24H PO SCH (08:45)
[2019-12-05] MEDS: FENTANYL 25 MCG PATCH TD SCH (08:46)
[2019-12-05] MEDS: POLYETHYLENE GLYCOL 17 GM PACKET PO SCH (08:46)
[2019-12-05] MEDS: SENNA/DOCUSATE TABLET PO SCH (08:47)
[2019-12-05] MEDS: FENTANYL REMOVE PATCH NOTE XX SCH (08:47)
[2019-12-05 12:09] VITALS: BP 114/67
[2019-12-05] MEDS ORDERED: WARFARIN 1 MG TABLET PO-COUM ONE (18:00)
[2019-12-05 20:16] VITALS: BP 120/73
[2019-12-06 03:38] VITALS: BP 117/77
[2019-12-06] MEDS: OXYcodone/APAP 5/325MG TABLET PO PRN ×5 (03:50→21:16)
[2019-12-06 05:01] LABS: INTERNATIONAL NORMALIZED RATIO 3.11 (0.93-1.1); PROTHROMBIN TIME 32.4 Seconds (9.6-11.5)
[2019-12-06 06:47] VITALS: BP 117/69
[2019-12-06] MEDS: POLYETHYLENE GLYCOL 17 GM PACKET PO SCH ×2 (07:40→09:49)
[2019-12-06] MEDS: SENNA/DOCUSATE TABLET PO SCH ×2 (07:40→09:49)
[2019-12-06] MEDS: BUMETANIDE 1 MG TABLET PO SCH (09:49)
[2019-12-06] MEDS: ACETAMINOPHEN 325 MG TABLET PO PRN (09:49)
[2019-12-06] MEDS: DILTIAZEM 240 MG CAP.ER.24H PO SCH (09:50)
[2019-12-06] MEDS: FUROSEMIDE 40 MG TABLET PO SCH ×2 (09:50→21:16)
[2019-12-06] MEDS: SPIRONOLACTONE 25 MG TABLET PO SCH (09:50)
[2019-12-06 12:44] VITALS: BP 126/70
[2019-12-06] MEDS: LORazepam 2 MG/ML, 1ML IVPush PRN (13:02)
[2019-12-06] MEDS ORDERED: WARFARIN 1 MG TABLET PO-COUM SCH (18:00)
[2019-12-06 18:41] VITALS: BP 112/71
[2019-12-07 01:04] VITALS: BP 116/74
[2019-12-07] MEDS: OXYcodone/APAP 5/325MG TABLET PO PRN ×4 (04:55→21:08)
[2019-12-07 05:10] LABS: INTERNATIONAL NORMALIZED RATIO 3.41 (0.93-1.1); PROTHROMBIN TIME 35.6 Seconds (9.6-11.5)
[2019-12-07 07:08] VITALS: BP 114/57
[2019-12-07] MEDS: LORazepam 2 MG/ML, 1ML IVPush PRN (07:44)
[2019-12-07] MEDS: POLYETHYLENE GLYCOL 17 GM PACKET PO SCH ×2 (09:53→15:48)
[2019-12-07] MEDS: SPIRONOLACTONE 25 MG TABLET PO SCH (09:54)
[2019-12-07] MEDS: BUMETANIDE 1 MG TABLET PO SCH (09:54)
[2019-12-07] MEDS: FUROSEMIDE 40 MG TABLET PO SCH ×2 (09:54→20:53)
[2019-12-07] MEDS: SENNA/DOCUSATE TABLET PO SCH (09:55)
[2019-12-07] MEDS: DILTIAZEM 240 MG CAP.ER.24H PO SCH (09:55)
[2019-12-07 12:27] VITALS: BP 137/81
[2019-12-07] MEDS ORDERED: WARFARIN 1 MG TABLET PO-COUM SCH (18:00)
[2019-12-07 18:50] VITALS: BP 112/68
[2019-12-08 01:16] VITALS: BP 135/68
[2019-12-08] MEDS: OXYcodone/APAP 5/325MG TABLET PO PRN ×6 (01:33→22:22)
[2019-12-08 05:31] LABS: INTERNATIONAL NORMALIZED RATIO 4.65 (0.93-1.1); PROTHROMBIN TIME 48.6 Seconds (9.6-11.5)
[2019-12-08 05:39] LABS: ANION GAP 4 mmol/L (5-15); CALCIUM 9.4 mg/dL (8.5-10.1); CHLORIDE 88 mmol/L (98-107)
[2019-12-08 07:14] VITALS: BP 128/84
[2019-12-08] MEDS: FUROSEMIDE 40 MG TABLET PO SCH ×2 (08:48→20:34)
[2019-12-08] MEDS: POLYETHYLENE GLYCOL 17 GM PACKET PO SCH (08:48)
[2019-12-08] MEDS: SPIRONOLACTONE 25 MG TABLET PO SCH (08:48)
[2019-12-08] MEDS: BUMETANIDE 1 MG TABLET PO SCH (08:48)
[2019-12-08] MEDS: SENNA/DOCUSATE TABLET PO SCH (08:50)
[2019-12-08] MEDS: DILTIAZEM 240 MG CAP.ER.24H PO SCH (08:50)
[2019-12-08] MEDS: FENTANYL REMOVE PATCH NOTE XX SCH (08:51)
[2019-12-08] MEDS: FENTANYL 25 MCG PATCH TD SCH (08:52)
[2019-12-08 12:59] VITALS: BP 134/84
[2019-12-08] MEDS: LORazepam 2 MG/ML, 1ML IVPush PRN (17:33)
[2019-12-08 18:14] VITALS: BP 129/78
[2019-12-09] MEDS: OXYcodone/APAP 5/325MG TABLET PO PRN (02:33)
[2019-12-09 02:34] VITALS: BP 119/67
[2019-12-09] MEDS: LORazepam 2 MG/ML, 1ML IVPush PRN (03:27)
[2019-12-09 06:25] LABS: INTERNATIONAL NORMALIZED RATIO 5.22 (0.93-1.1); PROTHROMBIN TIME 54.4 Seconds (9.6-11.5)
[2019-12-09 08:43] VITALS: BP 139/86
[2019-12-09] MEDS: POLYETHYLENE GLYCOL 17 GM PACKET PO SCH (09:00)
[2019-12-09] MEDS: FUROSEMIDE 40 MG TABLET PO SCH ×2 (09:00→20:33)
[2019-12-09] MEDS: BUMETANIDE 1 MG TABLET PO SCH (09:00)
[2019-12-09] MEDS: SENNA/DOCUSATE TABLET PO SCH (09:00)
[2019-12-09] MEDS: SPIRONOLACTONE 25 MG TABLET PO SCH (09:00)
[2019-12-09] MEDS ORDERED: HYDROmorphone 1 MG/ML, 1ML INJ IM PRN (09:30)
[2019-12-09] MEDS: DILTIAZEM 240 MG CAP.ER.24H PO SCH (09:38)
[2019-12-09] MEDS: HYDROmorphone 1 MG/ML, 1ML INJ IV PRN ×3 (09:39→22:03)
[2019-12-09 20:10] VITALS: BP 120/75
[2019-12-10 02:52] VITALS: BP 157/80
[2019-12-10] MEDS: HYDROmorphone 1 MG/ML, 1ML INJ IV PRN ×3 (03:13→17:04)
[2019-12-10] MEDS: OXYcodone/APAP 5/325MG TABLET PO PRN ×2 (05:12→22:13)
[2019-12-10 06:01] LABS: ANION GAP 3 mmol/L (5-15); CALCIUM 9.6 mg/dL (8.5-10.1); CHLORIDE 90 mmol/L (98-107); CREATININE 1.15 mg/dL (0.55-1.02)
[2019-12-10 06:03] LABS: INTERNATIONAL NORMALIZED RATIO 4.38 (0.93-1.1); PROTHROMBIN TIME 45.8 Seconds (9.6-11.5)
[2019-12-10 07:18] VITALS: BP 122/77
[2019-12-10] MEDS: SPIRONOLACTONE 25 MG TABLET PO SCH (09:00)
[2019-12-10] MEDS: POLYETHYLENE GLYCOL 17 GM PACKET PO SCH (09:00)
[2019-12-10] MEDS: SENNA/DOCUSATE TABLET PO SCH (09:00)
[2019-12-10] MEDS: BUMETANIDE 1 MG TABLET PO SCH (09:00)
[2019-12-10] MEDS: FUROSEMIDE 40 MG TABLET PO SCH ×2 (09:00→21:10)
[2019-12-10] MEDS: DILTIAZEM 240 MG CAP.ER.24H PO SCH (09:00)
[2019-12-10 13:13] VITALS: BP 144/85
[2019-12-10 18:37] VITALS: BP 135/82
[2019-12-11 03:55] VITALS: BP 103/60
[2019-12-11] MEDS: OXYcodone/APAP 5/325MG TABLET PO PRN ×2 (04:40→21:04)
[2019-12-11 05:22] LABS: INTERNATIONAL NORMALIZED RATIO 3.05 (0.93-1.1)
[2019-12-11 07:23] VITALS: BP 120/69
[2019-12-11] MEDS: HYDROmorphone 1 MG/ML, 1ML INJ IV PRN ×3 (07:54→19:32)
[2019-12-11] MEDS: POLYETHYLENE GLYCOL 17 GM PACKET PO SCH (07:54)
[2019-12-11] MEDS: FENTANYL 25 MCG PATCH TD SCH (07:56)
[2019-12-11] MEDS: FUROSEMIDE 40 MG TABLET PO SCH ×2 (07:56→19:32)
[2019-12-11] MEDS: DILTIAZEM 240 MG CAP.ER.24H PO SCH (07:56)
[2019-12-11] MEDS: SENNA/DOCUSATE TABLET PO SCH (07:56)
[2019-12-11] MEDS: SPIRONOLACTONE 25 MG TABLET PO SCH (07:56)
[2019-12-11] MEDS: BUMETANIDE 1 MG TABLET PO SCH (07:56)
[2019-12-11] MEDS: FENTANYL REMOVE PATCH NOTE XX SCH (09:00)
[2019-12-11 14:42] VITALS: BP 132/67
[2019-12-11] MEDS ORDERED: WARFARIN 1 MG TABLET PO-COUM ONE (18:00)
[2019-12-11 18:48] VITALS: BP 164/72
[2019-12-12 02:46] VITALS: BP 137/76
[2019-12-12] MEDS: OXYcodone/APAP 5/325MG TABLET PO PRN ×3 (03:01→14:15)
[2019-12-12] MEDS: HYDROmorphone 1 MG/ML, 1ML INJ IV PRN ×2 (06:04→22:02)
[2019-12-12 06:14] LABS: INTERNATIONAL NORMALIZED RATIO 2.01 (0.93-1.1); PROTHROMBIN TIME 21.2 Seconds (9.6-11.5)
[2019-12-12 07:34] VITALS: BP 124/78
[2019-12-12] MEDS: SENNA/DOCUSATE TABLET PO SCH (09:23)
[2019-12-12] MEDS: POLYETHYLENE GLYCOL 17 GM PACKET PO SCH (09:23)
[2019-12-12] MEDS: BUMETANIDE 1 MG TABLET PO SCH (09:24)
[2019-12-12] MEDS: SPIRONOLACTONE 25 MG TABLET PO SCH (09:24)
[2019-12-12] MEDS: DILTIAZEM 240 MG CAP.ER.24H PO SCH (09:24)
[2019-12-12] MEDS: FUROSEMIDE 40 MG TABLET PO SCH ×2 (09:24→20:24)
[2019-12-12 13:20] VITALS: BP 156/70
[2019-12-12] MEDS ORDERED: WARFARIN 1 MG TABLET PO-COUM ONE (18:00)
[2019-12-12 20:04] VITALS: BP 104/63
[2019-12-13 01:37] VITALS: BP 133/79
[2019-12-13] MEDS: OXYcodone/APAP 5/325MG TABLET PO PRN ×4 (02:05→20:58)
[2019-12-13 05:58] LABS: INTERNATIONAL NORMALIZED RATIO 1.86 (0.93-1.1); PROTHROMBIN TIME 19.6 Seconds (9.6-11.5)
[2019-12-13 09:06] VITALS: BP 124/80
[2019-12-13] MEDS: SENNA/DOCUSATE TABLET PO SCH (09:14)
[2019-12-13] MEDS: BUMETANIDE 1 MG TABLET PO SCH (09:14)
[2019-12-13] MEDS: POLYETHYLENE GLYCOL 17 GM PACKET PO SCH (09:15)
[2019-12-13] MEDS: FUROSEMIDE 40 MG TABLET PO SCH ×2 (09:15→19:26)
[2019-12-13] MEDS: SPIRONOLACTONE 25 MG TABLET PO SCH (09:15)
[2019-12-13] MEDS: DILTIAZEM 240 MG CAP.ER.24H PO SCH (09:15)
[2019-12-13 15:17] VITALS: BP 127/84
[2019-12-13] MEDS ORDERED: WARFARIN 1 MG TABLET PO-COUM ONE (18:00)
[2019-12-13 19:20] VITALS: BP 136/64
[2019-12-14 04:00] VITALS: BP 110/75
[2019-12-14 05:33] LABS: INTERNATIONAL NORMALIZED RATIO 1.81 (0.93-1.1); PROTHROMBIN TIME 19.1 Seconds (9.6-11.5)
[2019-12-14] MEDS: OXYcodone/APAP 5/325MG TABLET PO PRN ×2 (06:02→11:52)
[2019-12-14 06:27] VITALS: BP 112/68
[2019-12-14] MEDS: FENTANYL REMOVE PATCH NOTE XX SCH (09:00)
[2019-12-14] MEDS: BUMETANIDE 1 MG TABLET PO SCH (09:16)
[2019-12-14] MEDS: POLYETHYLENE GLYCOL 17 GM PACKET PO SCH (09:16)
[2019-12-14] MEDS: FUROSEMIDE 40 MG TABLET PO SCH (09:16)
[2019-12-14] MEDS: SPIRONOLACTONE 25 MG TABLET PO SCH (09:16)
[2019-12-14] MEDS: DILTIAZEM 240 MG CAP.ER.24H PO SCH (09:16)
[2019-12-14] MEDS: FENTANYL 25 MCG PATCH TD SCH (09:16)
[2019-12-14] MEDS: SENNA/DOCUSATE TABLET PO SCH (09:16)
[2019-12-14] MEDS ORDERED: FLU VACC QS2020-21(6MOS UP)/PF 60MCG/0.5 ML SYR IM-VACC ONE (12:00)
[2019-12-14] MEDS ORDERED: WARFARIN 1 MG TABLET PO-COUM ONE (18:00)
== END 2019-12-14 14:05 | disposition hospice, home (50) | DRG 180 ==
LOC: ED 18:29 → INTOOBSV 20:51 → EDIP 20:51 → OBSVTOIN 20:51 → 4WST 22:33 → 4NW 11-30 15:18
PROVIDERS: ADMIT Family Medicine; ATTEND Hospitalist
DX: C34.92 Malignant neoplasm of unspecified part of left bronchus or lung (principal); I50.33 Acute on chronic diastolic (congestive) heart failure; D68.69 Other thrombophilia; J96.10 Chronic respiratory failure, unspecified whether with hypoxia or hypercapnia; E66.9 Obesity, unspecified; I48.91 Unspecified atrial fibrillation; D72.829 Elevated white blood cell count, unspecified; G89.3 Neoplasm related pain (acute) (chronic); I11.0 Hypertensive heart disease with heart failure; J44.9 Chronic obstructive pulmonary disease, unspecified; K59.00 Constipation, unspecified; Z20.828 Contact with and (suspected) exposure to other viral communicable diseases; F32.9 Major depressive disorder, single episode, unspecified; R07.89 Other chest pain; Z68.34 Body mass index [BMI] 34.0-34.9, adult; Z79.01 Long term (current) use of anticoagulants; Z87.891 Personal history of nicotine dependence; Z88.0 Allergy status to penicillin; Z88.5 Allergy status to narcotic agent
CPT/HCPCS: 36415; 36600; 71045; 71275; 80048; 80053; 81001; 82803; 83605; 83880; 84443; 84484; 85025; 85379; 85610; 86480; 87040; 87086; 87635; 90686; 93005; 93306; G0378; J1170; J2405; Q9967; J2060; J7512